=== PATIENT | female | born 1990 | race Caucasian/White ===

== ENCOUNTER 2016-08-05 05:26 | Inpatient (IN) | payer BC, OTHER ==
[2016-08-05 05:38] VITALS: RESP 16
[2016-08-05] MEDS ORDERED: METHYLERGONOVINE 0.2 MG/ML 1 ML AMP IM PRN (06:44)
[2016-08-05] MEDS ORDERED: CARBOPROST TROMETHAMINE 250 MCG/ML 1 ML AMP IM PRN (06:44)
[2016-08-05] MEDS ORDERED: TERBUTALINE 1 MG/ML VIAL SQ PRN (06:44)
[2016-08-05] MEDS ORDERED: LIDOCAINE 1% (PF) 10 MG/ML (30 ML SDV) SQ PRN (06:44)
[2016-08-05] MEDS ORDERED: OXYTOCIN 10 UNIT/ML 1 ML VIAL IM PRN (06:44)
[2016-08-05] MEDS ORDERED: LACTATED RINGERS 1,000 ML IV SCH (06:45)
[2016-08-05] MEDS ORDERED: OXYTOCIN 20 UNITS/1000 ML NS 1,000 ML IV SCH (06:45)
[2016-08-05 06:53] VITALS: BMI 23.8
[2016-08-05 07:07] LABS: Basophils # (A) 0.1 k/uL (0-0.2); Basophils % (A) 1 %; CH 32.7; CHCM 36.2; Eosinophils # (A) 0.1 k/uL (0-0.7); Eosinophils % (A) 1 %; HCT 37.8 % (34.0-46.0); HDW 2.92; Luc # (Auto) 0.11; Luc % (Auto) 1; Lymphocytes % (A) 22 %; MCH 31.3 pg (25.0-35.0); MCHC 34.5 g/dL (31.0-37.0); MCV 90.7 fL (80.0-100.0); Mean Platelet Volume 7.3; Monocytes # (A) 0.4 k/uL (0-1.0); Monocytes % (A) 5 %; Neutrophils # (A) 6.3 k/uL (1.3-7.7); Neutrophils % (A) 71 %; RBC 4.16 m/uL (3.80-5.40); RDW 13.2 % (11.5-15.5); WBC 8.9 k/uL (3.8-10.6); WBC (Perox) 9.18
--- NOTE | 2016-08-05 07:50 | P.HPOB ---
History of Present Illness H&P Date: 08/05/16 Chief Complaint: Labor at 40 and one sevenths weeks This is a 26-year-old 1 para 0 woman with an estimated due date of 08/04 who presents at 40 and one sevenths weeks gestation in spontaneous active labor. She had onset of painful regular uterine contractions at approximately 2 :30 AM. She presented to labor and delivery triage at which time she changed her cervix from 4-5 cm. She was therefore admitted in labor. She denies leakage of fluids or vaginal bleeding. Her has been entirely unremarkable. Laboratory data: Blood type A-, antibody screen negative, rubella immune, VDRL nonreactive, hepatitis B surface antigen negative, HIV negative, diabetes screening within normal limits, group B strep negative, she received Tarun appropriately at approximately 28 weeks gestation. Review of Systems All systems: negative Past Medical History Past Medical History: No Reported History History of Any Multi-Drug Resistant Organisms: None Reported Past Surgical History: No Surgical Hx Reported Past Anesthesia/Blood Transfusion Reactions: No Reported Reaction Past Psychological History: No Psychological Hx Reported Smoking Status: Never smoker Past Alcohol Use History: None Reported Past Drug Use History: None Reported - Past Family History Mother Family Medical History: No Reported History Medications and Allergies Home Medications Medication Instructions Recorded Confirmed Type No.77/Iron Asp Gly/FA 1 tab PO DAILY 08/05/16 08/05/16 History [Prenate Star Tablet] Allergies Allergy/AdvReac Type Severity Reaction Status Date / Time No Known Allergies Allergy Verified 08/05/16 05:31 Exam - Vital Signs Vital signs: Vital Signs Temp Pulse Resp BP 08/05/16 06:49 97.0 F L 77 16 134/82 08/05/16 06:32 96.9 F L 77 16 134/82 08/05/16 05:32 96.9 F L 87 16 127/84 Intake and Output 08/04/16 08/05/16 08/05/16 22:59 06:59 14:59 Other: Weight 68.946 kg Targeted physical exam is performed. This is a comfortable appearing female who is visibly gravid. On pelvic examination the cervix is 7 cm dilated , 100% effaced, vertex in the 0 station. Artificial rupture of membranes is undertaken and thin meconium-stained fluid is noted. She was camilo approximately every 3-5 minutes spontaneously. heart tones are reassuring by external monitoring. Results Result Diagrams: 08/05/16 06:50 Assessment and Plan (1) 40 weeks gestation of Status: Acute (2) Meconium in amniotic fluid Status: Acute (3) Spontaneous onset of labor Status: Acute (4) Rh negative, maternal Status: Acute Plan: 26-year-old 1 para 0 woman at 40 and one sevenths weeks gestation in spontaneous active labor. Light meconium-stained fluid noted. She is group B strep negative and Rh-. status is currently reassuring by external monitoring. Anticipate normal spontaneous vaginal delivery.
[2016-08-05] MEDS ORDERED: LANOLIN CREAM 5 GM TUBE TOPICAL PRN (11:21)
[2016-08-05] MEDS ORDERED: diphenhydrAMINE 50 MG CAP PO PRN (11:21)
[2016-08-05] MEDS ORDERED: ZOLPIDEM 5 MG TAB PO PRN (11:21)
[2016-08-05] MEDS ORDERED: HYDROCORTISONE 2.5% RECTAL CREAM 30 GM TUBE RECTAL PRN (11:21)
[2016-08-05] MEDS ORDERED: SIMETHICONE 80 MG CHEWABLE PO PRN (11:21)
[2016-08-05] MEDS ORDERED: ACETAMINOPHEN TAB 325 MG TAB PO PRN (11:21)
[2016-08-05] MEDS ORDERED: diphenhydrAMINE 25 MG CAP PO PRN (11:21)
[2016-08-05] MEDS ORDERED: Acetaminophen-Codeine 300-30mg TAB PO PRN ×2 (11:21)
[2016-08-05] MEDS ORDERED: WITCH HAZEL 1 EACH MED..PAD TOPICAL PRN (11:21)
[2016-08-05] MEDS ORDERED: diphenhydrAMINE 50 MG/ML 1 ML VIAL IVP PRN ×2 (11:21)
[2016-08-05] MEDS ORDERED: BENZOCAINE SPRAY 57GM TOPICAL PRN (11:21)
--- NOTE | 2016-08-05 11:25 | P.PROBDLV ---
Vaginal Delivery Note - . Vaginal Delivery Note: The patient is a 26-year-old 1 para 0 admitted at 40 and one sevenths weeks as established by good dating parameters. She is admitted with documented spontaneous rupture of membranes of light meconium-stained fluid and all signs reassuring. Her has been uncomplicated though she is Rh- and received RhoGAM at 28 weeks. On labor and delivery, she required no requested anything for analgesia and made good progress through the active phase of labor to complete. She then pushed for approximately 30 minutes to a normal spontaneous vaginal delivery of a viable 7 lbs. 0 oz. baby girl with Apgars of 9 at 1 minute and 9 at 5 minutes delivered in the direct occiput anterior position. The placenta was delivered spontaneously, intact, and grossly normal with a grossly normal, centrally inserted three-vessel cord. A second-degree midline episiotomy had been cut for the delivery and was noted to have a minimal extension that divided the anterior portion of the capsule of the external anal sphincter. This was closed with a single [id number] stitch of 2-0 Vicryl. Remainder of the episiotomy was closed in standard fashion using 3-0 chromic catgut without difficulty. Estimated blood loss for the case is approximately 200 mL. There were no complications. All sponge, instrument, and needle counts were correct. Both mother and are resting comfortably in recovery.
[2016-08-05] MEDS: IBUPROFEN 600 MG TAB PO PRN ×2 (11:55→18:56)
[2016-08-05] MEDS ORDERED: Rhogam IMMUNE GLOBULIN 1,500 UNIT/1 ML IM ONE (17:41)
[2016-08-05] MEDS ORDERED: SENNOSIDES-DOCUSATE SODIUM 1 EACH TAB PO SCH (20:00)
[2016-08-06 08:17] VITALS: BP 111/71; PULSE 76; TEMP 97.8
--- NOTE | 2016-08-06 09:02 | P.DS ---
Providers Date of admission: 08/05/16 06:36 Expected date of discharge: 08/06/16 Attending physician: Kahlil Ortiz Primary care physician: Stated None - Discharge Diagnosis(es) (1) Normal spontaneous vaginal delivery Current Visit: Yes Status: Acute Hospital Course: The patient is a 26-year-old 1 para 0 admitted at 40 and one sevenths weeks by good dating parameters. She is admitted in active labor with all signs reassuring. She is known to be Rh- and received RhoGAM at 28 weeks. On labor and delivery, she underwent artificial rupture of membranes of string lightly meconium-stained fluid. She made progress through the active phase of labor in a steady fashion to complete where after she pushed to a normal spontaneous vaginal delivery of a viable 7 lbs. 0 oz. baby girl with Apgars of 9 at 1 minute and 9 at 5 minutes. Her course was unremarkable vital signs remained stable and her temperature is afebrile throughout. She was deemed stable for discharge by day #1 was discharged home to follow- up in the office in 6 weeks' time routinely. Discharge instructions included calling for any significantly increased bleeding or foul-smelling lochia, significantly increased fever abdominal pain, perineal complaints, breast complaints, or anything else that concerned her. She is additionally instructed to have nothing in the vagina for at least 6 weeks time to include intercourse. She understood her instructions and agrees to follow up as noted above. Discharge medications included only qlio-efc-liocacw analgesic pain medications as well as continued vitamins as she has opted to breast- feed. Maternal blood type is A- and cord blood was sent for evaluation for the necessity of RhoGAM prior to discharge. Rubella status is immune. Procedures: #1. Artificial rupture of membranes #2. Normal spontaneous vaginal delivery # 3. Second-degree midline episiotomy and repair Patient Condition at Discharge: Good Plan - Discharge Summary New Discharge Prescriptions: No Action No.77/Iron Asp Gly/FA [Prenate Star Tablet] 1 tab PO DAILY Discharge Medication List No.77/Iron Asp Gly/FA [Prenate Star Tablet] 1 tab PO DAILY 08/05/16 [ History] Follow up Appointment(s)/Referral(s): Kahlil Ortiz MD [STAFF PHYSICIAN] - 6 Weeks Discharge Disposition: HOME SELF-CARE
== END 2016-08-06 16:00 | disposition home or self-care (01) | DRG 775 ==
LOC: FBPOP 05:26 → 4FBP 06:36
PROVIDERS: ADMIT Obstetrics & Gynecology; ATTEND Obstetrics & Gynecology
PROC: 10E0XZZ Delivery of Products of Conception, External Approach (ICD-10-PCS; principal; 2016-08-05)
PROC: 0W8NXZZ Division of Female Perineum, External Approach (ICD-10-PCS; 2016-08-05)
PROC: 3E0234Z Introduction of Serum, Toxoid and Vaccine into Muscle, Percutaneous Approach (ICD-10-PCS; 2016-08-05)
DX: O77.0 Labor and delivery complicated by meconium in amniotic fluid (principal); O26.893 Other specified pregnancy related conditions, third trimester; Z37.0 Single live birth; Z67.11 Type A blood, Rh negative; Z3A.40 40 weeks gestation of pregnancy
CPT/HCPCS: 59025; 85025; 85461; 88307; 99203

== ENCOUNTER 2017-10-15 11:34 | Emergency (ER) | payer BC, OTHER ==
[2017-10-15 11:44] VITALS: RESP 18; TEMP 98.3
[2017-10-15] MEDS ORDERED: SODIUM CHLORIDE 0.9% 1,000 ML IV STA (12:32)
--- NOTE | 2017-10-15 12:59 | XR ---
EXAMINATION TYPE: XR chest 2V DATE OF EXAM: 10/15/2017 COMPARISON: None INDICATION: Left arm numbness and tingling, chest pain TECHNIQUE: Frontal and lateral views of the chest are obtained. FINDINGS: The heart size is normal. The pulmonary vasculature is normal. The lungs are clear. IMPRESSION: 1. No acute pulmonary process.
--- NOTE | 2017-10-15 13:16 | CT ---
EXAMINATION TYPE: CT brain wo con DATE OF EXAM: 10/15/2017 COMPARISON: None HISTORY: Pain, headache CT DLP: 742.7 mGycm. Automated Exposure Control for Dose Reduction was Utilized. TECHNIQUE: CT scan of the head is performed without contrast. FINDINGS: There is no acute intracranial hemorrhage, mass effect, or midline shift identified. The ventricles and sulci are within normal limits in size. The globes are intact and the visualized sin uses are clear. IMPRESSION: No acute intracranial hemorrhage, mass effect, or midline shift is seen.
[2017-10-15 13:29] LABS: D-Dimer <0.17 mg/L FEU (<0.60); Partial Thromboplastin Time 24.3 sec (22.0-30.0); Prothrombin Time 10.1 sec (9.0-12.0)
[2017-10-15 13:31] LABS: ALT 27 U/L (9-52); AST 25 U/L (14-36); Albumin 5.2 g/dL (3.5-5.0); Alkaline Phosphatase 66 U/L (38-126); Anion Gap 9 mmol/L; Blood Urea Nitrogen 12 mg/dL (7-17); Calcium 9.5 mg/dL (8.4-10.2); Carbon Dioxide 28 mmol/L (22-30); Chloride 105 mmol/L (98-107); Glucose 77 mg/dL (74-99); Sodium 142 mmol/L (137-145); Total Bilirubin 0.5 mg/dL (0.2-1.3); Total Protein 7.9 g/dL (6.3-8.2)
[2017-10-15 13:43] LABS: Creatine Kinase 67 U/L (30-135)
[2017-10-15 13:55] LABS: Basophils # (A) 0.1 k/uL (0-0.2); Basophils % (A) 1 %; Eosinophils # (A) 0.1 k/uL (0-0.7); Eosinophils % (A) 1 %; HCT 43.9 % (34.0-46.0); HGB 14.8 gm/dL (11.4-16.0); Lymphocytes # (A) 1.9 k/uL (1.0-4.8); Lymphocytes % (A) 40 %; MCH 29.6 pg (25.0-35.0); MCHC 33.7 g/dL (31.0-37.0); MCV 87.7 fL (80.0-100.0); Mean Platelet Volume 6.8; Monocytes # (A) 0.3 k/uL (0-1.0); Monocytes % (A) 5 %; Neutrophils # (A) 2.4 k/uL (1.3-7.7); Neutrophils % (A) 51 %; Platelet Count 171 k/uL (150-450); RDW 12.6 % (11.5-15.5); WBC 4.7 k/uL (3.8-10.6)
[2017-10-15 13:56] LABS: Creatine Kinase MB 0.5 ng/mL (0.0-2.4); Troponin I <0.012 ng/mL (0.000-0.034)
--- NOTE | 2017-10-15 15:03 | ED ---
General Adult HPI - General Chief complaint: Headache Stated complaint: HEADACHE, NUMBNESS, TINGLING Time Seen by Provider: 10/15/17 12:20 Source: patient Mode of arrival: ambulatory Limitations: no limitations - History of Present Illness Initial comments: 27 years O female presents with the blurred vision yesterday he started around the wound she had a blood vision for about half an hour then it got better also had a left arm numbness that lasted for 1 hour yesterday and she experienced the left arm numbness again today and she felt her tongue was numb and has some chest pain with deep breaths she denies any tobacco use she denies any history of pulmonary embolism with herself or in the family she is on a control pills. System is unremarkable otherwise - Related Data Home Medications Medication Instructions Recorded Confirmed Control (Unknown) 1 tab PO HS 10/15/17 10/15/17 Multivitamins, Thera [Multivitamin 1 tab PO DAILY 10/15/17 10/15/17 (formulary)] Allergies Allergy/AdvReac Type Severity Reaction Status Date / Time No Known Allergies Allergy Verified 10/15/17 11:41 Review of Systems ROS Statement: Those systems with pertinent positive or pertinent negative responses have been documented in the HPI. ROS Other: All systems not noted in ROS Statement are negative. Past Medical History Past Medical History: No Reported History History of Any Multi-Drug Resistant Organisms: None Reported Past Surgical History: No Surgical Hx Reported Past Anesthesia/Blood Transfusion Reactions: No Reported Reaction Past Psychological History: No Psychological Hx Reported Smoking Status: Never smoker Past Alcohol Use History: None Reported Past Drug Use History: None Reported - Past Family History Mother Family Medical History: No Reported History General Exam - General Exam Comments Initial Comments: General: The patient is awake and alert, in no distress, and does not appear acutely ill. Skin: Skin is warm and dry and no rashes or lesions are noted. Eye: Pupils are equal, round and reactive to light, extra-ocular movements are intact; there is normal conjunctiva bilaterally. Ears, nose, mouth and throat: There are moist mucous membranes and no oral lesions. Neck: The neck is supple, there is no tenderness . Cardiovascular: There is a regular rate and rhythm. No murmur, rub or gallop is appreciated. Respiratory: To auscultation bilateral, no wheezing no rhonchi no distress respiratory pink noticed Gastrointestinal: Soft, non-distended, non-tender abdomen without masses or organomegaly noted. There is no rebound or guarding present. Bowel sounds are unremarkable. Back: There is no tenderness to palpation in the midline. There is no obvious deformity. Musculoskeletal: Normal ROM, no tenderness, There is no pedal edema. There is no calf tenderness or swelling. No cords were appreciated. Neurological: CN II-XII intact, Cranial nerves III through XII are intact. There are no obvious motor or sensory deficits. Coordination appears grossly intact. Speech is normal. Psychiatric: Cooperative, appropriate mood & affect, normal judgment. Limitations: no limitations Course Vital Signs 10/15/17 11:41 Temperature 98.3 F Pulse Rate 104 H Respiratory 18 Rate Blood Pressure 138/66 O2 Sat by Pulse 99 Oximetry Plan now reassessment d-dimer, CBC, CMP, troponin, EKG, head CT are unremarkable these findings are discussed with the patient she is also urged to get a family doctor or return to the ER if symptoms get worse EKG Findings - EKG Comments: EKG Findings:: Him EKG is a normal sinus ventricular rate is 77 MD interval is 146 QRS duration is 84 QT/QTc is 356/42 review of this EKG does not reveal any ST elevation or ST depression Medical Decision Making - Lab Data Result diagrams: 10/15/17 12:56 10/15/17 12:56 Lab Results 10/15/17 10/15/17 10/15/17 Range/Units 12:56 12:56 12:56 WBC 4.7 (3.8-10.6) k/uL RBC 5.00 (3.80-5.40) m/uL Hgb 14.8 (11.4-16.0) gm/dL Hct 43.9 (34.0-46.0) % MCV 87.7 (80.0-100.0) fL MCH 29.6 (25.0-35.0) pg MCHC 33.7 (31.0-37.0) g/dL RDW 12.6 (11.5-15.5) % Plt Count 171 (150-450) k/uL Neutrophils % 51 % Lymphocytes % 40 % Monocytes % 5 % Eosinophils % 1 % Basophils % 1 % Neutrophils # 2.4 (1.3-7.7) k/uL Lymphocytes # 1.9 (1.0-4.8) k/uL Monocytes # 0.3 (0-1.0) k/uL Eosinophils # 0.1 (0-0.7) k/uL Basophils # 0.1 (0-0.2) k/uL PT (9.0-12.0) sec INR (<1.2) APTT (22.0-30.0) sec D-Dimer (<0.60) mg/L FEU Sodium 142 (137-145) mmol/L Potassium 4.0 (3.5-5.1) mmol/L Chloride 105 (98-107) mmol/L Carbon Dioxide 28 (22-30) mmol/L Anion Gap 9 mmol/L BUN 12 (7-17) mg/dL Creatinine 0.64 (0.52-1.04) mg/dL Est GFR (CKD-EPI)AfAm >90 (>60 ml/min/1.73 sqM) Est GFR (CKD-EPI)NonAf >90 (>60 ml/min/1.73 sqM) Glucose 77 (74-99) mg/dL Calcium 9.5 (8.4-10.2) mg/dL Magnesium 2.0 (1.6-2.3) mg/dL Total Bilirubin 0.5 (0.2-1.3) mg/dL AST 25 (14-36) U/L ALT 27 (9-52) U/L Alkaline Phosphatase 66 (38-126) U/L Total Creatine Kinase 67 (30-135) U/L CK-MB (CK-2) 0.5 (0.0-2.4) ng/mL CK-MB (CK-2) Rel Index 0.7 Troponin I <0.012 (0.000-0.034) ng/mL Total Protein 7.9 (6.3-8.2) g/dL Albumin 5.2 H (3.5-5.0) g/dL 10/15/17 Range/Units 12:56 WBC (3.8-10.6) k/uL RBC (3.80-5.40) m/uL Hgb (11.4-16.0) gm/dL Hct (34.0-46.0) % MCV (80.0-100.0) fL MCH (25.0-35.0) pg MCHC (31.0-37.0) g/dL RDW (11.5-15.5) % Plt Count (150-450) k/uL Neutrophils % % Lymphocytes % % Monocytes % % Eosinophils % % Basophils % % Neutrophils # (1.3-7.7) k/uL Lymphocytes # (1.0-4.8) k/uL Monocytes # (0-1.0) k/uL Eosinophils # (0-0.7) k/uL Basophils # (0-0.2) k/uL PT 10.1 (9.0-12.0) sec INR 1.0 (<1.2) APTT 24.3 (22.0-30.0) sec D-Dimer <0.17 (<0.60) mg/L FEU Sodium (137-145) mmol/L Potassium (3.5-5.1) mmol/L Chloride (98-107) mmol/L Carbon Dioxide (22-30) mmol/L Anion Gap mmol/L BUN (7-17) mg/dL Creatinine (0.52-1.04) mg/dL Est GFR (CKD-EPI)AfAm (>60 ml/min/1.73 sqM) Est GFR (CKD-EPI)NonAf (>60 ml/min/1.73 sqM) Glucose (74-99) mg/dL Calcium (8.4-10.2) mg/dL Magnesium (1.6-2.3) mg/dL Total Bilirubin (0.2-1.3) mg/dL AST (14-36) U/L ALT (9-52) U/L Alkaline Phosphatase (38-126) U/L Total Creatine Kinase (30-135) U/L CK-MB (CK-2) (0.0-2.4) ng/mL CK-MB (CK-2) Rel Index Troponin I (0.000-0.034) ng/mL Total Protein (6.3-8.2) g/dL Albumin (3.5-5.0) g/dL Disposition Clinical Impression: Blurred vision, Left arm numbness, Numbness of tongue, Pleuritic chest pain Disposition: HOME SELF-CARE Condition: Good Instructions: Blurred Vision (ED) Additional Instructions: R progression of her like her to see account contact associate she was referred to Dr ernandez Is patient prescribed a controlled substance at d/c from ED?: No Referrals: None,Stated [Primary Care Provider] - 1-2 days Addison Ernandez MD [STAFF PHYSICIAN] - 1-2 days
[2017-10-15 15:29] VITALS: BP 111/53; PULSE 79
== END 2017-10-15 15:28 | disposition home or self-care (01) ==
LOC: EC 11:34
DX: R07.81 Pleurodynia (principal); H53.8 Other visual disturbances; R20.0 Anesthesia of skin; Z79.3 Long term (current) use of hormonal contraceptives
CPT/HCPCS: 36415; 70450; 71046; 80053; 82550; 82553; 83735; 84484; 85025; 85379; 85610; 85730; 93005; 99284

== ENCOUNTER 2020-01-13 01:13 | Inpatient (IN) | payer OTHER ==
[2020-01-13] MEDS ORDERED: OXYTOCIN 10 UNIT/ML 1 ML VIAL IM PRN (02:00)
[2020-01-13] MEDS ORDERED: OXYTOCIN 30 UNITS/500 ML NS 30 UNIT in SALINE 1 500ML.BAG IV SCH (02:00)
[2020-01-13] MEDS ORDERED: CARBOPROST TROMETHAMINE 250 MCG/ML 1 ML AMP IM PRN (02:00)
[2020-01-13] MEDS ORDERED: METHYLERGONOVINE 0.2 MG/ML 1 ML AMP IM PRN (02:00)
[2020-01-13] MEDS ORDERED: LIDOCAINE 0.5% (PF) 5 MG/ML (50 ML SDV) SQ PRN (02:00)
[2020-01-13] MEDS ORDERED: TERBUTALINE 1 MG/ML VIAL SQ PRN (02:00)
[2020-01-13] MEDS ORDERED: LACTATED RINGERS 1,000 ML IV SCH (02:00)
[2020-01-13 02:18] LABS: Basophils # (A) 0.1 k/uL (0-0.2); Basophils % (A) 1 %; Eosinophils # (A) 0.1 k/uL (0-0.7); Eosinophils % (A) 1 %; HCT 37.5 % (34.0-46.0); HGB 13.4 gm/dL (11.4-16.0); Hyperchromasia Slight; Lymphocytes # (A) 1.8 k/uL (1.0-4.8); Lymphocytes % (A) 19 %; MCH 31.4 pg (25.0-35.0); MCHC 35.6 g/dL (31.0-37.0); MCV 88.2 fL (80.0-100.0); Mean Platelet Volume 7.3; Monocytes # (A) 0.4 k/uL (0-1.0); Monocytes % (A) 4 %; Neutrophils % (A) 74 %; Platelet Count 172 k/uL (150-450); RBC 4.26 m/uL (3.80-5.40); RDW 12.4 % (11.5-15.5); WBC 9.5 k/uL (3.8-10.6)
[2020-01-13] MEDS ORDERED: LANOLIN CREAM 5 GM TUBE TOPICAL PRN (05:12)
[2020-01-13] MEDS ORDERED: SIMETHICONE 80 MG CHEWABLE PO PRN (05:12)
[2020-01-13] MEDS ORDERED: diphenhydrAMINE 50 MG CAP PO PRN (05:12)
[2020-01-13] MEDS ORDERED: diphenhydrAMINE 50 MG/ML 1 ML VIAL IVP PRN ×2 (05:12)
[2020-01-13] MEDS ORDERED: diphenhydrAMINE 25 MG CAP PO PRN (05:12)
[2020-01-13] MEDS ORDERED: ZOLPIDEM 5 MG TAB PO PRN (05:12)
[2020-01-13] MEDS ORDERED: ACETAMINOPHEN TAB 325 MG TAB PO PRN (05:12)
[2020-01-13] MEDS ORDERED: HYDROCORTISONE 2.5% RECTAL CREAM 30 GM TUBE RECTAL PRN (05:12)
[2020-01-13] MEDS ORDERED: BENZOCAINE/MENTHOL SPRAY 1 GM/SPRAY AEROSOL TOPICAL PRN (05:12)
[2020-01-13] MEDS ORDERED: OXYTOCIN 20 UNITS/1000 ML NS 1,000 ML IV SCH (05:15)
--- NOTE | 2020-01-13 05:19 | P.HPOB ---
History of Present Illness H&P Date: 01/13/20 Chief Complaint: IUP at 40 and 4/sevenths weeks, labor This is a 29-year-old at 40-4/7 weeks with an estimated due date of 01/08. Patient has been receiving routine care that has been essentially uncomplicated. Patient presented to labor and delivery with complaints of regular contractions that started around 11:00. Patient states she had rupture of membranes around 1210. She noted the fluid to be clear in nature. On bloodwork patient is a blood type of A-, rubella immune, hep [place] surface antigen negative, HIV negative, RPR negative, GBS negative. Review of Systems Constitutional: Denies chills, Denies fatigue, Denies fever Ears, nose, mouth and throat: Denies headache Cardiovascular: Reports leg edema Respiratory: Denies dyspnea Gastrointestinal: Denies constipation, Denies diarrhea, Denies nausea, Denies vomiting Genitourinary: Reports Past Medical History Past Medical History: No Reported History History of Any Multi-Drug Resistant Organisms: None Reported Past Surgical History: No Surgical Hx Reported Past Anesthesia/Blood Transfusion Reactions: No Reported Reaction Smoking Status: Never smoker - Past Family History Mother Family Medical History: No Reported History Medications and Allergies Home Medications Medication Instructions Recorded Confirmed Type Multivitamins, Thera [Multivitamin 1 tab PO DAILY 10/15/17 01/13/20 History (formulary)] Allergies Allergy/AdvReac Type Severity Reaction Status Date / Time No Known Allergies Allergy Verified 01/13/20 01:24 Exam Osteopathic Statement: *. No significant issues noted on an osteopathic structural exam other than those noted in the History and Physical/Consult. Vital Signs Temp Pulse Resp BP Pulse Ox 01/13/20 01:57 98.4 F 88 16 131/72 96 01/13/20 01:55 97.6 F 82 16 116/72 Intake and Output 01/12/20 01/12/20 01/13/20 14:59 22:59 06:59 Other: Weight 69.4 kg Targeted physical exam was performed and state in general this a well-nourished well-developed female in discomfort with contractions, breathing is noted to nonlabored, heart has regular rate and rhythm, abdomen is gravid and appropriate for gestational age, on cervical exam she is completely dilated and 0 station for bag is noted and rupture of membranes is performed with clear fluid. heart tones are be category 1 and she was camilo every 3 minutes. Results Result Diagrams: 01/13/20 02:10 Assessment and Plan (1) Post-dates Current Visit: Yes Status: Acute Code(s): O48.0 - POST-TERM SNOMED Code(s): 15335732 (2) Rh negative, maternal Current Visit: No Status: Acute Code(s): O09.899 - SUPERVISION OF OTHER HIGH RISK PREGNANCIES, UNSP TRIMESTER SNOMED Code(s): 198453684 (3) Spontaneous onset of labor Current Visit: No Status: Acute Code(s): BXM2880 - SNOMED Code(s): 38484183 Plan: Patient is admitted to labor and delivery for anticipated spontaneous vaginal delivery
--- NOTE | 2020-01-13 05:23 | P.PROBDLV ---
Vaginal Delivery Note - . Vaginal Delivery Note: This is a 29-year-old at 40-4/7 that presents to labor and delivery with complaints of regular contractions that began around 2300, followed by spontaneous rupture of membranes at 1210. Patient presented to the hospital was noted to be 5 cm. Patient progressed through labor eventually becoming complete began pushing and had a normal spontaneous vaginal delivery of a viable female at 451, weight of 6 lbs. 11 oz. and Apgars of 9 and 9 at one and 5 minut es respectively. After two-minute delayed the umbilical cord was doubly clamped and cut and the placenta was delivered spontaneously intact with a three-vessel cord being noted. Uterus was noted to be firm and below the umbilicus. On inspection the patient's vaginal vault bilateral labial lacerations were noted. These were repaired in the usual fashion with 4-0 chromic in a running locked fashion. Hemostasis was appreciated after closure. All counts were noted to be correct 2 with a result of A shunt tolerated delivery well and are resting comfortably Estimated blood loss 400 mL
[2020-01-13] MEDS: IBUPROFEN 600 MG TAB PO PRN ×2 (05:29→18:54)
[2020-01-13] MEDS: SENNOSIDES-DOCUSATE SODIUM 1 EACH TAB PO SCH ×2 (08:24→18:56)
[2020-01-14 08:04] VITALS: BP 106/61; PULSE 73; RESP 18; TEMP 97.6
[2020-01-14] MEDS: SENNOSIDES-DOCUSATE SODIUM 1 EACH TAB PO SCH (08:11)
[2020-01-14 08:22] LABS: Basophils # (A) 0.1 k/uL (0-0.2); Basophils % (A) 1 %; Eosinophils # (A) 0.1 k/uL (0-0.7); Eosinophils % (A) 1 %; HCT 29.4 % (34.0-46.0); HGB 10.5 gm/dL (11.4-16.0); Lymphocytes # (A) 2.3 k/uL (1.0-4.8); Lymphocytes % (A) 27 %; MCHC 35.5 g/dL (31.0-37.0); MCV 90.1 fL (80.0-100.0); Mean Platelet Volume 7.5; Monocytes # (A) 0.4 k/uL (0-1.0); Monocytes % (A) 4 %; Neutrophils # (A) 5.7 k/uL (1.3-7.7); Neutrophils % (A) 67 %; Platelet Count 147 k/uL (150-450); RBC 3.27 m/uL (3.80-5.40); RDW 12.7 % (11.5-15.5); WBC 8.5 k/uL (3.8-10.6)
--- NOTE | 2020-01-14 11:07 | P.DS ---
Providers Date of admission: 01/13/20 01:48 Expected date of discharge: 01/14/20 Attending physician: Kahlil Ortiz Primary care physician: Stated None - Discharge Diagnosis(es) (1) Post-dates Current Visit: Yes Status: Acute (2) Normal spontaneous vaginal delivery Current Visit: No Status: Acute (3) Rh negative, maternal Current Visit: No Status: Acute (4) Spontaneous onset of labor Current Visit: No Status: Acute Hospital Course: This is a 29-year-old 2 now para 2 woman who is admitted at 40-4/7 weeks' gestation with spontaneous onset of labor and rupture of membranes. She was 5 cm dilated when she presented to the hospital. She had an unremarkable progression through the first stage of labor. She went on to deliver a liveborn female weighing 6 lbs. 11 oz. with Apgars of 9 at 1 minute and 9 at 5 minutes. She had bilateral labial lacerations were repaired. Her course was unremarkable. By day #1 she was ambulating and voiding without difficulty, her lochia was decreasing and her vital signs were stable. Her labial lacerations were well healing. She was therefore discharged home with routine instructions for care and follow-up. Patient Condition at Discharge: Good Plan - Discharge Summary New Discharge Prescriptions: No Action Multivitamins, Thera [Multivitamin (formulary)] 1 tab PO DAILY Discharge Medication List Multivitamins, Thera [Multivitamin (formulary)] 1 tab PO DAILY 10/15/17 [History] Follow up Appointment(s)/Referral(s): Kahlil Ortiz MD [STAFF PHYSICIAN] - 6 Weeks Activity/Diet/Wound Care/Special Instructions: Follow-up in the office in 6 weeks . Call with any concerning signs or symptoms including heavy vaginal bleeding, severe abdominal pain, fever greater than 101, swelling or redness of the lower extremities, foul vaginal discharge, or signs of depression. Nothing in the vagina for 6 weeks after delivery, specifically no intercourse. Discharge Disposition: HOME SELF-CARE
== END 2020-01-14 11:35 | disposition home or self-care (01) | DRG 807 ==
LOC: FBPOP 01:13 → 4FBP 01:48
PROVIDERS: ADMIT Obstetrics & Gynecology Obstetrics; ATTEND Obstetrics & Gynecology
PROC: 10E0XZZ Delivery of Products of Conception, External Approach (ICD-10-PCS; principal; 2020-01-13)
PROC: 0HQ9XZZ Repair Perineum Skin, External Approach (ICD-10-PCS; 2020-01-13)
DX: O48.0 Post-term pregnancy (principal); Z37.0 Single live birth; O70.0 First degree perineal laceration during delivery; Z3A.40 40 weeks gestation of pregnancy; Z79.899 Other long term (current) drug therapy
CPT/HCPCS: 59025; 84112; 85025; 86850; 86870; 86880; 86900; 86901; 99213

== ENCOUNTER 2021-04-24 21:58 | Inpatient (IN) | payer OTHER ==
[2021-04-24] MEDS ORDERED: TERBUTALINE 1 MG/ML VIAL SQ PRN (22:32)
[2021-04-24] MEDS ORDERED: OXYTOCIN 10 UNIT/ML 1 ML VIAL IM PRN (22:32)
[2021-04-24] MEDS ORDERED: CARBOPROST TROMETHAMINE 250 MCG/ML 1 ML AMP IM PRN (22:32)
[2021-04-24] MEDS ORDERED: LIDOCAINE 1% (PF) 10 MG/ML (30 ML SDV) SQ PRN (22:32)
[2021-04-24] MEDS ORDERED: METHYLERGONOVINE 0.2 MG/ML 1 ML AMP IM PRN (22:32)
[2021-04-24] MEDS ORDERED: LACTATED RINGERS 1,000 ML IV SCH (22:45)
[2021-04-24] MEDS ORDERED: OXYTOCIN 30 UNITS/500 ML NS 30 UNIT in SALINE 1 500ML.BAG IV SCH (22:45)
[2021-04-24 22:51] LABS: Basophils % (A) 0 %; Eosinophils # (A) 0.1 k/uL (0-0.7); Eosinophils % (A) 1 %; HCT 38.6 % (34.0-46.0); HGB 13.8 gm/dL (11.4-16.0); Lymphocytes # (A) 2.1 k/uL (1.0-4.8); Lymphocytes % (A) 26 %; MCH 32.3 pg (25.0-35.0); MCHC 35.6 g/dL (31.0-37.0); MCV 90.5 fL (80.0-100.0); Mean Platelet Volume 8.8; Monocytes # (A) 0.4 k/uL (0-1.0); Monocytes % (A) 5 %; Neutrophils # (A) 5.5 k/uL (1.3-7.7); Neutrophils % (A) 67 %; Platelet Count 180 k/uL (150-450); RBC 4.27 m/uL (3.80-5.40); RDW 12.6 % (11.5-15.5); WBC 8.2 k/uL (3.8-10.6)
[2021-04-25] MEDS ORDERED: HYDROcodone/APAP 7.5-325MG 1 EACH TAB PO PRN (00:06)
[2021-04-25] MEDS ORDERED: HYDROcodone/APAP 5-325MG 1 EACH TAB PO PRN (00:06)
[2021-04-25] MEDS ORDERED: diphenhydrAMINE 25 MG CAP PO PRN (00:06)
[2021-04-25] MEDS ORDERED: diphenhydrAMINE 50 MG/ML 1 ML VIAL IVP PRN ×2 (00:06)
[2021-04-25] MEDS ORDERED: BENZOCAINE/MENTHOL SPRAY 1 GM/SPRAY AEROSOL TOPICAL PRN (00:06)
[2021-04-25] MEDS ORDERED: diphenhydrAMINE 50 MG CAP PO PRN (00:06)
[2021-04-25] MEDS ORDERED: ACETAMINOPHEN TAB 325 MG TAB PO PRN (00:06)
[2021-04-25] MEDS ORDERED: ZOLPIDEM 5 MG TAB PO PRN (00:06)
[2021-04-25] MEDS ORDERED: SIMETHICONE 80 MG CHEWABLE PO PRN (00:06)
[2021-04-25] MEDS ORDERED: LANOLIN CREAM 5 GM TUBE TOPICAL PRN (00:06)
[2021-04-25] MEDS ORDERED: HYDROCORTISONE 2.5% RECTAL CREAM 30 GM TUBE RECTAL PRN (00:06)
--- NOTE | 2021-04-25 00:13 | P.HPOB ---
History of Present Illness H&P Date: 04/25/21 Chief Complaint: 37-4/7 weeks, active labor, spontaneous rupture of membranes The patient is a 30-year-old 3 para 2001 admitted at 37-4/7 weeks as determined by a 6 week ultrasound. She is admitted with documented spontaneous rupture of membranes in early active labor with all signs reassuring. Category 1 heart rate tracing is present. Her has been entirely uncomplicated. She is Rh- and received RhoGAM at 28 weeks. Group B strep status is negative. Obstetrical history: 3 para 2001 with 2 previous normal spontaneous vaginal deliveries at term. Her has been entirely uncomplicated as noted above. EDC of 05/11/2021 was established by a 6 week ultrasound. Laboratory workup demonstrates a blood type of A- with a negative antibody screen. Rubella status is immune. Remainder of the laboratory workup was within normal limits. One hour Glucola was normal and group B strep status is negative. Gynecologic history: Unremarkable with no history of any infections to include STDs. Review of Systems Review of systems is confined to history of present illness. Past Medical History Past Medical History: No Reported History History of Any Multi-Drug Resistant Organisms: None Reported Past Surgical History: No Surgical Hx Reported Past Anesthesia/Blood Transfusion Reactions: No Reported Reaction Past Psychological History: No Psychological Hx Reported Smoking Status: Never smoker Past Alcohol Use History: None Reported Past Drug Use History: None Reported - Past Family History Mother Family Medical History: No Reported History Father Family Medical History: Hypertension Medications and Allergies Home Medications Medication Instructions Recorded Confirmed Type Multivitamins, Thera [Multivitamin 1 tab PO DAILY 10/15/17 04/24/21 History (formulary)] Allergies Allergy/AdvReac Type Severity Reaction Status Date / Time No Known Allergies Allergy Verified 01/13/20 01:24 Exam Vital Signs Temp Pulse Resp BP Pulse Ox 04/24/21 22:30 97.4 F L 88 16 137/84 96 Intake and Output 04/24/21 04/24/21 04/25/21 14:59 22:59 06:59 Other: Weight 75.75 kg General, this is a well-developed, well-nourished white female in no acute distress aside from being in active labor. Her heart has a regular rhythm and rate without murmur. Her lungs are clear to auscultation bilaterally in all bills. Her abdomen is gravid, nondistended, has normal active bowel sounds, is soft, nontender, without any palpable masses aside from uterine fundus. Her extremities are without any cyanosis, clubbing, or edema and are nontender to palpation bilaterally. Digital cervical examination demonstrates her cervix on admission to be 5 cm, 80% effaced, with the vertex in presentation at -2 station on admission. Spontaneous rupture of membranes is documented. Results Result Diagrams: 04/24/21 22:40 Assessment and Plan (1) Active labor at term Current Visit: Yes Status: Acute Code(s): [id number] - SNOMED Code(s): 38065411 Plan: The patient is admitted for active management of labor. She has declined epidu ral and IV analgesia and she will have close maternal and surveillance and expectant management will be practiced. Normal vaginal deliveries anticipated shortly.
[2021-04-25] MEDS ORDERED: OXYTOCIN 30 UNITS/500 ML NS 30 UNIT in SALINE 1 500ML.BAG IV SCH (00:15)
--- NOTE | 2021-04-25 00:15 | P.PROBDLV ---
Vaginal Delivery Note - . Vaginal Delivery Note: The patient is a 30-year-old 3 para 2 scissors or 2 admitted at 37-4/7 weeks by good dating parameters. She is admitted with documented spontaneous rupture of membranes in early active labor with all signs reassuring. Her has been uncomplicated though she is Rh- and received RhoGAM at 28 weeks. Group B strep status is negative. On labor and delivery, all signs reassuring with a category 1 heart rate tracing. She has declined epidural analgesia. She made rapid progress through the active phase of labor to complete and then pushed over the course of 1 contraction to a normal spontaneous vaginal delivery of a viable 7 lbs. 12 oz. baby boy with Apgars of 9 at 1 minute and 9 at 5 minutes delivered in the right occiput anterior position. The placenta was delivered spontaneously, intact, and grossly normal with a grossly normal, centrally inserted three-vessel cord. There were no lacerations of the perineum, vagina, or cervix. Estimated blood loss was approximately 150 mL. There were no complications. All sponge, instrument, and needle counts were correct. Both mother and are resting comfortably in recovery.
[2021-04-25] MEDS: IBUPROFEN 600 MG TAB PO PRN ×3 (02:37→19:46)
[2021-04-25 04:08] VITALS: RESP 16
--- NOTE | 2021-04-25 08:48 | P.PNOBGVD ---
Subjective - Subjective Patient reports: Reports appetite normal, Reports voiding normally, Reports pain well controlled, Reports ambulating normally : doing well, nursing well Objective - Latest Vital Signs Latest vital signs: Vital Signs Temp Pulse Resp BP Pulse Ox 04/25/21 03:45 98.9 F 88 16 116/72 97 04/25/21 02:00 98.4 F 72 18 141/80 98 04/25/21 01:30 78 16 127/82 04/25/21 01:00 76 18 147/76 04/25/21 00:45 76 16 137/80 04/25/21 00:30 91 16 123/85 04/25/21 00:15 80 18 134/80 04/25/21 00:00 97.7 F 87 16 125/81 97 04/24/21 22:30 97.4 F L 88 16 137/84 96 04/24/21 22:03 97.4 F L 88 16 137/84 96 Intake and Output 04/24/21 04/25/21 04/25/21 22:59 06:59 14:59 Intake Total 167 Output Total 334 Balance -167 Intake: Intake, IV Titration 167 Amount Oxytocin 30 Units/500 ml 167 Ns 30 unit In Saline 1 500ml.bag @ Per Protocol IV .Q0M [facility] Rx#:[id number] Output: Estimated Blood Loss 150 Output, Quantitative 184 Blood Loss Other: # Voids 1 Weight 75.75 kg - Exam Extremities: Present: normal Abdomen: Present: normal appearance, soft Uterus: Present: normal, firm (Uterine fundus is town a candidate nontender below the umbilicus.) Assessment and Plan (1) Active labor at term Current Visit: Yes Status: Acute Code(s): HRI0862 - SNOMED Code(s): 33034606 (2) Normal spontaneous vaginal delivery Current Visit: Yes Status: Acute Code(s): O80 - ENCOUNTER FOR FULL-TERM UNCOMPLICATED DELIVERY SNOMED Code(s): 10670009 Plan: Continue routine care. I would anticipate discharge home tomorrow pending no complications.
[2021-04-25] MEDS: SENNOSIDES-DOCUSATE SODIUM 1 EACH TAB PO SCH ×2 (09:20→19:46)
[2021-04-26 05:55] LABS: Basophils % (A) 0 %; Eosinophils # (A) 0.1 k/uL (0-0.7); Eosinophils % (A) 2 %; HCT 34.2 % (34.0-46.0); HGB 11.9 gm/dL (11.4-16.0); Lymphocytes # (A) 2.5 k/uL (1.0-4.8); Lymphocytes % (A) 33 %; MCH 31.8 pg (25.0-35.0); MCHC 34.9 g/dL (31.0-37.0); MCV 91.2 fL (80.0-100.0); Mean Platelet Volume 8.4; Monocytes # (A) 0.3 k/uL (0-1.0); Monocytes % (A) 4 %; Neutrophils # (A) 4.5 k/uL (1.3-7.7); Neutrophils % (A) 60 %; Platelet Count 151 k/uL (150-450); RBC 3.75 m/uL (3.80-5.40); RDW 12.7 % (11.5-15.5); WBC 7.5 k/uL (3.8-10.6)
[2021-04-26 08:03] VITALS: BP 117/68; PULSE 89; TEMP 97.8
[2021-04-26] MEDS: SENNOSIDES-DOCUSATE SODIUM 1 EACH TAB PO SCH (09:13)
--- NOTE | 2021-04-26 10:33 | P.DS ---
Providers Date of admission: 04/24/21 22:12 Expected date of discharge: 04/26/21 Attending physician: Kahlil Ortiz Primary care physician: Stated None - Discharge Diagnosis(es) (1) Active labor at term Current Visit: Yes Status: Acute (2) Normal spontaneous vaginal delivery Current Visit: Yes Status: Acute Hospital Course: The patient is a 30-year-old 3 para 2001 admitted at 37-4/7 weeks by good dating parameters perches admitted with documented spontaneous rupture of membranes in early active labor with all signs reassuring. Her was entirely uncomplicated though she is Rh- and received RhoGAM at 28 weeks. Group B strep status is negative. On labor and delivery, she made fairly rapid progress to complete and then pushed to a normal spontaneous vaginal delivery of a viable 7 lbs. 12 oz. baby boy with Apgars of 9 at 1 minute and 9 at 5 minutes. Her care was unremarkable with vital signs remained stable and her temperature was afebrile throughout. She was deemed stable for discharge on day #2 and was discharged home to follow-up in the office in 6 weeks' time routinely. Discharge instructions included calling for any significantly increased bleeding or foul-smelling lochia, significantly increased fever abdominal pain, perineal complaints, breast complaints, or anything else that concerned her. She was additionally instructed to have nothing in the vagina for at least 6 weeks time to include intercourse. She understood her instructions and agrees to follow up as noted above. Discharge medications included continued vitamins as she has opted to breast-feed. She otherwise was to use [id number] analgesic pain medications as needed. Maternal blood type is A- and cord blood was sent for evaluation for the necessity of RhoGAM prior to discharge. Rubella status is immune. Procedures: #1. Normal spontaneous vaginal delivery Patient Condition at Discharge: Stable Plan - Discharge Summary New Discharge Prescriptions: No Action Multivitamins, Thera [Multivitamin (formulary)] 1 tab PO DAILY Discharge Medication List Multivitamins, Thera [Multivitamin (formulary)] 1 tab PO DAILY 10/15/17 [History] Follow up Appointment(s)/Referral(s): Kahlil Ortiz MD [STAFF PHYSICIAN] - 6 Weeks Discharge Disposition: HOME SELF-CARE
== END 2021-04-26 12:42 | disposition home or self-care (01) | DRG 807 ==
LOC: FBPOP 21:58 → 4FBP 22:12
PROVIDERS: ADMIT Obstetrics & Gynecology; ATTEND Obstetrics & Gynecology
PROC: 10E0XZZ Delivery of Products of Conception, External Approach (ICD-10-PCS; principal; 2021-04-25)
DX: O26.893 Other specified pregnancy related conditions, third trimester (principal); Z37.0 Single live birth; Z67.11 Type A blood, Rh negative; Z79.899 Other long term (current) drug therapy; Z3A.37 37 weeks gestation of pregnancy; Z82.49 Family history of ischemic heart disease and other diseases of the circulatory system
CPT/HCPCS: 59025; 84112; 85025; 86850; 86870; 86880; 86900; 86901; 99213

== ENCOUNTER 2021-09-19 08:00 | Emergency (ER) | payer OTHER ==
[2021-09-19] MEDS ORDERED: MORPHINE SULFATE 4 MG/ML SYRINGE IV STA (08:24)
[2021-09-19] MEDS ORDERED: SODIUM CHLORIDE 0.9% 1,000 ML IV STA (08:25)
[2021-09-19] MEDS ORDERED: ONDANSETRON 4 MG/2 ML VIAL IVP STA (08:27)
--- NOTE | 2021-09-19 08:27 | ED ---
General Adult HPI - General Chief complaint: Abdominal Pain Stated complaint: R side pain, left leg numbness Time Seen by Provider: 09/19/21 08:01 Source: patient Mode of arrival: ambulatory Limitations: no limitations - History of Present Illness Initial comments: Dictation was produced using [employer] dictation software. please excuse any grammatical, word or spelling errors. Chief Complaint: 31-year-old female presents emergency department for right- sided abdominal pain History of Present Illness: 31-year-old female she presents emergency department for severe right-sided abdominal pain. Patient denies any medical history. No history of abdominal surgery. Patient denies . She is 5 months . Patient has no history of abdominal disease. Patient states that her pain is severe right-sided. Nonradiating. She states that it feels like it's in her flank. Denies any vaginal discharge vaginal bleeding. Denies any fever or constitutional symptoms. She woke up with the symptoms. States that the pain is severe and rated a 10 out of 10 and the pain severity scale. Today she had some bouts of nonbilious nonbloody emesis. The ROS documented in this emergency department record has been reviewed and confirmed by me. Those systems with pertinent positive or negative responses have been documented in the HPI. All other systems are other negative and/or noncontributory. PHYSICAL EXAM: General Impression: Alert and oriented x3, not in acute distress HEENT: Normocephalic atraumatic, extra-ocular movements intact, pupils equal and reactive to light bilaterally, mucous membranes moist. Cardiovascular: Heart regular rate and rhythm Chest: Able to complete full sentences, no retractions, no tachypnea Abdomen: abdomen soft, tenderness to palpation in the right lower quadrant, more superior than McBurney's point, she states that the pain is similar with palpation and release, non-distended, no organomegaly Musculoskeletal: Pulses present and equal in all extremities, no peripheral edema Motor: no focal deficits noted Neurological: CN II-XII grossly intact, no focal motor or sensory deficits noted Skin: Intact with no visualized rashes Psych: Normal affect and mood ED course: 31-year-old male presents emergency department for severe right lower quadrant abdominal pain. Vital signs upon arrival are within acceptable limits. Laboratory evaluation obtained. CBC is unremarkable. Metabolic panel is within acceptable limits. No signs of leukocytosis or kidney injury. Urinalysis shows 21 white blood cells without any red blood cells. 1+ ketones. Computed tomography scan abdomen and pelvis shows findings of nephrolithiasis with severe right-sided hydronephrosis. There is a 3-4 mm right UVJ calculus. There is also a 4 mm right renal calculus. I did receive a call from radiologist about intrahepatic biliary ductal dilatation no diagnostic evidence of gallstone. Patient was notified of the results and told to follow-up with primary care doctor. She is also given referral to GI doctor. Patient evaluated bedside limited 15 a.m. onto be in stable medical condition. Patient reports significant improvement of pain. Clinically patient likely passed the stone. Patient was discharged. - Related Data Home Medications Medication Instructions Recorded Confirmed Multivitamins, Thera [Multivitamin 1 tab PO DAILY 10/15/17 09/19/21 (formulary)] Previous Rx's Medication Instructions Recorded HYDROcodone/APAP 5-325MG [[place] 1 tab PO Q6HR PRN 3 Days #12 tab 09/19/21 5-325] Allergies Allergy/AdvReac Type Severity Reaction Status Date / Time No Known Allergies Allergy Verified 09/19/21 09:52 Review of Systems ROS Statement: Those systems with pertinent positive or pertinent negative responses have been documented in the HPI. ROS Other: All systems not noted in ROS Statement are negative. Past Medical History Past Medical History: No Reported History History of Any Multi-Drug Resistant Organisms: None Reported Past Surgical History: No Surgical Hx Reported Past Anesthesia/Blood Transfusion Reactions: No Reported Reaction Past Psychological History: No Psychological Hx Reported Smoking Status: Never smoker Past Alcohol Use History: Occasional Past Drug Use History: None Reported - Past Family History Mother Family Medical History: No Reported History Father Family Medical History: Hypertension General Exam Limitations: no limitations Course Vital Signs 09/19/21 08:02 Temperature 97.9 F Pulse Rate 67 Respiratory 16 Rate Blood Pressure 116/75 O2 Sat by Pulse 100 Oximetry Medical Decision Making - Lab Data Result diagrams: 09/19/21 08:17 09/19/21 08:17 Lab Results 09/19/21 09/19/21 09/19/21 Range/Units 08:17 08:17 08:17 WBC 4.8 (3.8-10.6) k/uL RBC 4.71 (3.80-5.40) m/uL Hgb 13.9 (11.4-16.0) gm/dL Hct 41.1 (34.0-46.0) % MCV 87.2 (80.0-100.0) fL MCH 29.5 (25.0-35.0) pg MCHC 33.8 (31.0-37.0) g/dL RDW 12.4 (11.5-15.5) % Plt Count 150 (150-450) k/uL MPV 8.0 Neutrophils % 60 % Lymphocytes % 33 % Monocytes % 4 % Eosinophils % 2 % Basophils % 1 % Neutrophils # 2.9 (1.3-7.7) k/uL Lymphocytes # 1.6 (1.0-4.8) k/uL Monocytes # 0.2 (0-1.0) k/uL Eosinophils # 0.1 (0-0.7) k/uL Basophils # 0.0 (0-0.2) k/uL Sodium (137-145) mmol/L Potassium (3.5-5.1) mmol/L Chloride (98-107) mmol/L Carbon Dioxide (22-30) mmol/L Anion Gap mmol/L BUN (7-17) mg/dL Creatinine (0.52-1.04) mg/dL Est GFR (CKD-EPI)AfAm (>60 ml/min/1.73 sqM) Est GFR (CKD-EPI)NonAf (>60 ml/min/1.73 sqM) Glucose (74-99) mg/dL Calcium (8.4-10.2) mg/dL Total Bilirubin (0.2-1.3) mg/dL AST (14-36) U/L ALT (4-34) U/L Alkaline Phosphatase (38-126) U/L Total Protein (6.3-8.2) g/dL Albumin (3.5-5.0) g/dL Lipase (23-300) U/L Urine Color Yellow Urine Appearance Cloudy H (Clear) Urine pH 5.0 (5.0-8.0) Ur Specific [place] 1.026 (1.001-1.035) Urine Protein Trace H (Negative) Urine Glucose (UA) Negative (Negative) Urine Ketones 1+ H (Negative) Urine Blood Negative (Negative) Urine Nitrite Negative (Negative) Urine Bilirubin Negative (Negative) Urine Urobilinogen <2.0 (<2.0) mg/dL Ur Leukocyte Esterase Moderate H (Negative) Urine RBC 2 (0-5) /hpf Urine WBC 21 H (0-5) /hpf Ur Squamous Epith Cells 9 H (0-4) /hpf Hyaline Casts 1 (0-2) /lpf Urine Mucus Few H (None) /hpf Urine HCG, Qual Not Detected (Not Detectd) 09/19/21 Range/Units 08:17 WBC (3.8-10.6) k/uL RBC (3.80-5.40) m/uL Hgb (11.4-16.0) gm/dL Hct (34.0-46.0) % MCV (80.0-100.0) fL MCH (25.0-35.0) pg MCHC (31.0-37.0) g/dL RDW (11.5-15.5) % Plt Count (150-450) k/uL MPV Neutrophils % % Lymphocytes % % Monocytes % % Eosinophils % % Basophils % % Neutrophils # (1.3-7.7) k/uL Lymphocytes # (1.0-4.8) k/uL Monocytes # (0-1.0) k/uL Eosinophils # (0-0.7) k/uL Basophils # (0-0.2) k/uL Sodium 140 (137-145) mmol/L Potassium 3.8 (3.5-5.1) mmol/L Chloride 106 (98-107) mmol/L Carbon Dioxide 22 (22-30) mmol/L Anion Gap 12 mmol/L BUN 14 (7-17) mg/dL Creatinine 0.76 (0.52-1.04) mg/dL Est GFR (CKD-EPI)AfAm >90 (>60 ml/min/1.73 sqM) Est GFR (CKD-EPI)NonAf >90 (>60 ml/min/1.73 sqM) Glucose 112 H (74-99) mg/dL Calcium 9.2 (8.4-10.2) mg/dL Total Bilirubin 0.7 (0.2-1.3) mg/dL AST 22 (14-36) U/L ALT 13 (4-34) U/L Alkaline Phosphatase 68 (38-126) U/L Total Protein 7.3 (6.3-8.2) g/dL Albumin 4.7 (3.5-5.0) g/dL Lipase 71 (23-300) U/L Urine Color Urine Appearance (Clear) Urine pH (5.0-8.0) Ur Specific [place] (1.001-1.035) Urine Protein (Negative) Urine Glucose (UA) (Negative) Urine Ketones (Negative) Urine Blood (Negative) Urine Nitrite (Negative) Urine Bilirubin (Negative) Urine Urobilinogen (<2.0) mg/dL Ur Leukocyte Esterase (Negative) Urine RBC (0-5) /hpf Urine WBC (0-5) /hpf Ur Squamous Epith Cells (0-4) /hpf Hyaline Casts (0-2) /lpf Urine Mucus (None) /hpf Urine HCG, Qual (Not Detectd) Disposition Clinical Impression: Kidney stone Disposition: HOME SELF-CARE Condition: Good Instructions (If sedation given, give patient instructions): Kidney Stones (ED) Additional Instructions: 1. Today you were treated and evaluated for kidney stone. 2. There was incidental finding of biliary ductal dilatation. It is important he follow-up with primary care doctor or specialist for further evaluation. Please seek medical attention if you have any right upper quadrant pain or yellowing of the skin. Prescriptions: HYDROcodone/APAP 5-325MG [[place] 5-325] 1 tab PO Q6HR PRN 3 Days #12 tab PRN Reason: Pain Is patient prescribed a controlled substance at d/c from ED?: Yes If prescribed controlled substance>3 days was MAPS reviewed?: Prescribed <3 Days Referrals: Louisa Varela MD [REFERRING] - 1-2 days Tesha Hill MD [STAFF PHYSICIAN] - 1-2 days José Wheat MD [REFERRING] - 1-2 days Denise Arzola MD [STAFF PHYSICIAN] - 1-2 days Time of Disposition: 11:13
[2021-09-19 08:54] LABS: Basophils % (A) 1 %; Eosinophils # (A) 0.1 k/uL (0-0.7); Eosinophils % (A) 2 %; HCT 41.1 % (34.0-46.0); HGB 13.9 gm/dL (11.4-16.0); Lymphocytes # (A) 1.6 k/uL (1.0-4.8); Lymphocytes % (A) 33 %; MCH 29.5 pg (25.0-35.0); MCHC 33.8 g/dL (31.0-37.0); MCV 87.2 fL (80.0-100.0); Monocytes # (A) 0.2 k/uL (0-1.0); Monocytes % (A) 4 %; Neutrophils # (A) 2.9 k/uL (1.3-7.7); Neutrophils % (A) 60 %; Platelet Count 150 k/uL (150-450); RBC 4.71 m/uL (3.80-5.40); RDW 12.4 % (11.5-15.5); WBC 4.8 k/uL (3.8-10.6)
[2021-09-19 08:57] LABS: ALT 13 U/L (4-34); AST 22 U/L (14-36); African American GFR (CKD) >90 (>60 ml/min/1.73 sqM); Albumin 4.7 g/dL (3.5-5.0); Alkaline Phosphatase 68 U/L (38-126); Anion Gap 12 mmol/L; Blood Urea Nitrogen 14 mg/dL (7-17); Calcium 9.2 mg/dL (8.4-10.2); Carbon Dioxide 22 mmol/L (22-30); Chloride 106 mmol/L (98-107); Glucose 112 mg/dL (74-99); Lipase 71 U/L (23-300); Non-African American GFR(CKD) >90 (>60 ml/min/1.73 sqM); Potassium 3.8 mmol/L (3.5-5.1); Sodium 140 mmol/L (137-145); Total Bilirubin 0.7 mg/dL (0.2-1.3); Total Protein 7.3 g/dL (6.3-8.2)
[2021-09-19 09:07] LABS: Appearance,Urine Cloudy (Clear); Bilirubin,Urine Negative (Negative); Blood,Urine Negative (Negative); Color,Urine Yellow; Glucose,Urine (UA) Negative (Negative); Hyaline Casts,Urine 1 /lpf (0-2); Ketones,Urine 1+ (Negative); Leukocyte Esterase,Urine Moderate (Negative); Mucus,Urine Few /hpf; Nitrite,Urine Negative (Negative); Protein,Urine Trace (Negative); RBC,Urine 2 /hpf (0-5); Specific Gravity,Urine 1.026 (1.001-1.035); Squamous Epithelial Cell,Urine 9 /hpf (0-4); Urobilinogen,Urine <2.0 mg/dL (<2.0); WBC,Urine 21 /hpf (0-5)
[2021-09-19] MEDS ORDERED: KETOROLAC 15 MG/ML 1 ML VIAL IVP STA (09:08)
--- NOTE | 2021-09-19 10:27 | CT ---
EXAMINATION TYPE: CT abdomen pelvis w con DATE OF EXAM: 09/19/2021 COMPARISON: HISTORY: RLQ pain suspect appendicitis CT DLP: 612.4 mGycm Automated exposure control for dose reduction was used. CONTRAST: CT scan of the abdomen pelvis is performed with IV Contrast, patient injected with 100 mL of Isovue 3 00. FINDINGS- LUNG BASES- No significant abnormality is appreciated. LIVER/GB-there is moderate intrahepatic biliary ductal dilation. No definite gallstone... PANCREAS- No gross abnormality is seen. SPLEEN- No gross abnormality is seen. ADRENALS- No gross abnormality is seen. KIDNEYS/BLADDER-severe right-sided hydronephrosis secondary to obstructing UVJ calculus measuring amber roximately 3 to 4 mm. Additional 4 mm right renal calculus. BOWEL-nonspecific bowel gas pattern. Appendix measures 6 mm at the upper limits of normal with no tristan rounding inflammatory change.. LYMPH NODES- No greater than 1cm abdominal or pelvic lymph nodes areappreciated. OSSEOUS STRUCTURES- No significant abnormality is seen. OTHER- small amount of free fluid in the pelvis. Prominent venous structures may represent pelvic va rices. BE correlated with pelvic ultrasound. IMPRESSION- 1. Severe right hydronephrosis secondary to 3 to 4 mm right UVJ calculus. Additional 4 mm right renal calculus. 2. There is moderate intrahepatic biliary ductal dilation with no diagnostic evidence of gallstone. V isualized portions of the bile duct demonstrate no calcification or dilation. Obstruction would be in the differential diagnosis. Cholangitis should be considered. Correlate clinically. 3. Incidental note made of a small amount of free fluid in the pelvis with prominent pelvic varices. Correlate with pelvic ultrasound as clinically warranted. 4. Appendix measures at the upper limits of normal at 6 mm with no definite surrounding inflammatory change correlate clinically
[2021-09-19 11:42] VITALS: BP 138/60; PULSE 76; RESP 18; TEMP 98.1
== END 2021-09-19 11:42 | disposition home or self-care (01) ==
LOC: EC 08:00
DX: N13.2 Hydronephrosis with renal and ureteral calculous obstruction (principal)
CPT/HCPCS: 36415; 80053; 83690; 85025; 81001; 81025; 87086; 74177; 99284; 96374; 96375; 96361; J2270; J2405; J1885; Q9967

== ENCOUNTER 2021-10-01 14:14 | Observation (INO) | payer OTHER ==
[2021-10-01 15:47] LABS: Appearance,Urine Clear (Clear); Bilirubin,Urine Negative (Negative); Blood,Urine Trace (Negative); Color,Urine Yellow; Glucose,Urine (UA) Negative (Negative); Leukocyte Esterase,Urine Negative (Negative); Mucus,Urine Rare /hpf; Nitrite,Urine Negative (Negative); PH, Urine 5.5 (5.0-8.0); Protein,Urine 1+ (Negative); RBC,Urine 1 /hpf (0-5); Specific Gravity,Urine 1.029 (1.001-1.035); Squamous Epithelial Cell,Urine 1 /hpf (0-4); Urobilinogen,Urine <2.0 mg/dL (<2.0); WBC,Urine <1 /hpf (0-5)
[2021-10-01 16:05] LABS: Ketones,Urine 4+ (Negative)
[2021-10-01] MEDS ORDERED: ONDANSETRON ODT 8 MG TAB.RAPDIS PO STA (16:38)
[2021-10-01] MEDS ORDERED: KETOROLAC 15 MG/ML 1 ML VIAL IVP STA ×2 (16:38→17:44)
[2021-10-01] MEDS ORDERED: SODIUM CHLORIDE 0.9% 1,000 ML IV STA ×2 (16:38→19:26)
[2021-10-01] MEDS ORDERED: ONDANSETRON 4 MG/2 ML VIAL IVP STA (17:05)
[2021-10-01 17:20] LABS: Basophils # (A) 0.1 k/uL (0-0.2); Basophils % (A) 1 %; Eosinophils % (A) 0 %; HCT 41.8 % (34.0-46.0); HGB 14.1 gm/dL (11.4-16.0); Lymphocytes # (A) 1.6 k/uL (1.0-4.8); Lymphocytes % (A) 16 %; MCH 29.4 pg (25.0-35.0); MCHC 33.8 g/dL (31.0-37.0); Mean Platelet Volume 7.6; Monocytes # (A) 0.7 k/uL (0-1.0); Monocytes % (A) 7 %; Neutrophils # (A) 7.5 k/uL (1.3-7.7); Neutrophils % (A) 75 %; Platelet Count 210 k/uL (150-450); RBC 4.81 m/uL (3.80-5.40); RDW 12.2 % (11.5-15.5); WBC 10.1 k/uL (3.8-10.6)
[2021-10-01 17:34] LABS: Albumin 4.9 g/dL (3.5-5.0); Calcium 9.3 mg/dL (8.4-10.2); Potassium 4.8 mmol/L (3.5-5.1); Total Bilirubin 1.2 mg/dL (0.2-1.3); Total Protein 7.7 g/dL (6.3-8.2)
[2021-10-01 17:38] LABS: INR 0.9 (<1.2); Partial Thromboplastin Time 23.7 sec (22.0-30.0)
--- NOTE | 2021-10-01 17:57 | ED ---
Abdominal Pain HPI - General Chief Complaint: Abdominal Pain Stated Complaint: Abd/side pain Time Seen by Provider: 10/01/21 16:32 Source: patient Mode of arrival: ambulatory Limitations: no limitations - History of Present Illness Initial Comments: Patient is a 31-year-old female presenting with chief complaint of right flank pain. Patient states that symptoms have been ongoing for the last 3 days. Patient was evaluated here on 09/19 for the same complaint, was found to have 3-4 mm right-sided calculus with severe right-sided hydronephrosis, was discharged home and instructed to follow up outpatient. She states that pain has since worsened. The pain is severe and does not radiate across the abdomen. Patient was previously having dysuria, however states that symptoms have subsided. She denies any fever or chills. She admits to nausea and vomiting. Denies any chest pain, shortness of breath, headache, vision or hearing changes hematuria, diarrhea, hematochezia, melena, vaginal discharge. - Related Data Home Medications Medication Instructions Recorded Confirmed Multivitamins, Thera [Multivitamin 1 tab PO DAILY 10/15/17 10/01/21 (formulary)] Allergies Allergy/AdvReac Type Severity Reaction Status Date / Time No Known Allergies Allergy Verified 10/01/21 18:39 Review of Systems ROS Statement: Those systems with pertinent positive or pertinent negative responses have been documented in the HPI. ROS Other: All systems not noted in ROS Statement are negative. Past Medical History Past Medical History: No Reported History History of Any Multi-Drug Resistant Organisms: None Reported Past Surgical History: No Surgical Hx Reported Past Anesthesia/Blood Transfusion Reactions: No Reported Reaction Past Psychological History: No Psychological Hx Reported Smoking Status: Never smoker Past Alcohol Use History: Occasional Past Drug Use History: None Reported - Past Family History Mother Family Medical History: No Reported History Father Family Medical History: Hypertension General Exam Limitations: no limitations General appearance: alert, in no apparent distress Head exam: Present: atraumatic, normocephalic, normal inspection Eye exam: Present: normal appearance, EOMI. Absent: scleral icterus, periorbital swelling Neck exam: Present: normal inspection Respiratory exam: Present: normal lung sounds bilaterally. Absent: respiratory distress, wheezes, rales, rhonchi, stridor Cardiovascular Exam: Present: regular rate, normal rhythm, normal heart sounds. Absent: systolic murmur, diastolic murmur, rubs, gallop, clicks GI/Abdominal exam: Present: soft, tenderness (Right-sided). Absent: distended, guarding, rebound, rigid Back exam: Present: CVA tenderness (R). Absent: CVA tenderness (L) Neurological exam: Present: alert, oriented X3, CN II-XII intact Psychiatric exam: Present: normal affect, normal mood Skin exam: Present: warm, dry, intact, normal color. Absent: rash Course Vital Signs 10/01/21 14:53 Temperature 97.9 F Pulse Rate 114 H Respiratory 18 Rate O2 Sat by Pulse 98 Oximetry Medical Decision Making - Medical Decision Making Patient is a 31-year-old female presenting with chief complaint of right-sided abdominal pain. Symptoms have been ongoing since 09/19, however the last 3 days symptoms have worsened. She is experiencing nausea and vomiting. On examination she has right-sided abdominal tenderness to palpation, abdomen is soft, nondistended, no guarding or rebound. No leukocytosis. BUN 19 creatinine 1.11 GFR 68, this has worsened since studies on 09/19. Urine shows 4+ ketones, likely due to dehydration. Metabolic acidosis carbon dioxide 15 with anion gap of 21, this may be due to severity dehydration or decreased kidney function. CT shows [id number] right-sided hydronephrosis secondary to obstructing 6 mm calculus at the ureterovesicular junction. There is concern for appendicitis, as appendix has dilated from 6 mm to 8 mm since 09/19, and there is some mild fat stranding. I spoke with Dr. Ramirez who agreed to admit the patient. I spoke with surgery and nephrology. Patient started on Zosyn per the request of surgery. I discussed these findings and the plan with the patient, she conveyed verbal understanding and agreed to the plan. I discussed this case with my attending Dr. Paulson. - Lab Data Result diagrams: 10/01/21 17:05 10/01/21 17:05 Lab Results 10/01/21 10/01/21 10/01/21 Range/Units 15:11 17:05 17:05 WBC 10.1 (3.8-10.6) k/uL RBC 4.81 (3.80-5.40) m/uL Hgb 14.1 (11.4-16.0) gm/dL Hct 41.8 (34.0-46.0) % MCV 87.0 (80.0-100.0) fL MCH 29.4 (25.0-35.0) pg MCHC 33.8 (31.0-37.0) g/dL RDW 12.2 (11.5-15.5) % Plt Count 210 (150-450) k/uL MPV 7.6 Neutrophils % 75 % Lymphocytes % 16 % Monocytes % 7 % Eosinophils % 0 % Basophils % 1 % Neutrophils # 7.5 (1.3-7.7) k/uL Lymphocytes # 1.6 (1.0-4.8) k/uL Monocytes # 0.7 (0-1.0) k/uL Eosinophils # 0.0 (0-0.7) k/uL Basophils # 0.1 (0-0.2) k/uL PT 10.0 (9.0-12.0) sec INR 0.9 (<1.2) APTT 23.7 (22.0-30.0) sec Sodium (137-145) mmol/L Potassium (3.5-5.1) mmol/L Chloride (98-107) mmol/L Carbon Dioxide (22-30) mmol/L Anion Gap mmol/L BUN (7-17) mg/dL Creatinine (0.52-1.04) mg/dL Est GFR (CKD-EPI)AfAm (>60 ml/min/1.73 sqM) Est GFR (CKD-EPI)NonAf (>60 ml/min/1.73 sqM) Glucose (74-99) mg/dL Plasma Lactic Acid Raj (0.7-2.0) mmol/L Calcium (8.4-10.2) mg/dL Total Bilirubin (0.2-1.3) mg/dL AST (14-36) U/L ALT (4-34) U/L Alkaline Phosphatase (38-126) U/L Total Protein (6.3-8.2) g/dL Albumin (3.5-5.0) g/dL Amylase (30-110) U/L Lipase (23-300) U/L Urine Color Yellow Urine Appearance Clear (Clear) Urine pH 5.5 (5.0-8.0) Ur Specific [place] 1.029 (1.001-1.035) Urine Protein 1+ H (Negative) Urine Glucose (UA) Negative (Negative) Urine Ketones 4+ H (Negative) Urine Blood Trace H (Negative) Urine Nitrite Negative (Negative) Urine Bilirubin Negative (Negative) Urine Urobilinogen <2.0 (<2.0) mg/dL Ur Leukocyte Esterase Negative (Negative) Urine RBC 1 (0-5) /hpf Urine WBC <1 (0-5) /hpf Ur Squamous Epith Cells 1 (0-4) /hpf Urine Mucus Rare H (None) /hpf 10/01/21 10/01/21 Range/Units 17:05 17:05 WBC (3.8-10.6) k/uL RBC (3.80-5.40) m/uL Hgb (11.4-16.0) gm/dL Hct (34.0-46.0) % MCV (80.0-100.0) fL MCH (25.0-35.0) pg MCHC (31.0-37.0) g/dL RDW (11.5-15.5) % Plt Count (150-450) k/uL MPV Neutrophils % % Lymphocytes % % Monocytes % % Eosinophils % % Basophils % % Neutrophils # (1.3-7.7) k/uL Lymphocytes # (1.0-4.8) k/uL Monocytes # (0-1.0) k/uL Eosinophils # (0-0.7) k/uL Basophils # (0-0.2) k/uL PT (9.0-12.0) sec INR (<1.2) APTT (22.0-30.0) sec Sodium 137 (137-145) mmol/L Potassium 4.8 (3.5-5.1) mmol/L Chloride 101 (98-107) mmol/L Carbon Dioxide 15 L (22-30) mmol/L Anion Gap 21 mmol/L BUN 19 H (7-17) mg/dL Creatinine 1.11 H (0.52-1.04) mg/dL Est GFR (CKD-EPI)AfAm 78 (>60 ml/min/1.73 sqM) Est GFR (CKD-EPI)NonAf 68 (>60 ml/min/1.73 sqM) Glucose 74 (74-99) mg/dL Plasma Lactic Acid Raj 1.2 (0.7-2.0) mmol/L Calcium 9.3 (8.4-10.2) mg/dL Total Bilirubin 1.2 (0.2-1.3) mg/dL AST 19 (14-36) U/L ALT 10 (4-34) U/L Alkaline Phosphatase 89 (38-126) U/L Total Protein 7.7 (6.3-8.2) g/dL Albumin 4.9 (3.5-5.0) g/dL Amylase 58 (30-110) U/L Lipase 80 (23-300) U/L Urine Color Urine Appearance (Clear) Urine pH (5.0-8.0) Ur Specific [place] (1.001-1.035) Urine Protein (Negative) Urine Glucose (UA) (Negative) Urine Ketones (Negative) Urine Blood (Negative) Urine Nitrite (Negative) Urine Bilirubin (Negative) Urine Urobilinogen (<2.0) mg/dL Ur Leukocyte Esterase (Negative) Urine RBC (0-5) /hpf Urine WBC (0-5) /hpf Ur Squamous Epith Cells (0-4) /hpf Urine Mucus (None) /hpf Disposition Clinical Impression: Nephrolithiasis, Hydronephrosis Disposition: ADMITTED IP TO THIS [facility] Condition: Fair Referrals: None,Stated [Primary Care Provider] - 1-2 days Time of Disposition: 19:11 Decision to Admit Reason: Admit from EC Decision Date: 10/01/21 Decision Time: 19:11
--- NOTE | 2021-10-01 18:28 | CT ---
EXAMINATION TYPE: CT abdomen pelvis wo con CT DLP: 382.9 mGycm, Automated exposure control for dose reduction was used. DATE OF EXAM: 10/01/2021 5:42 PM COMPARISON: CT abdomen pelvis most recent from 09/19. Contrast filled /2021 CLINICAL INDICATION:Female, 31 years old with history of Right flank pain, kidney stone suspected; RT flank pain. Hx renal stones TECHNIQUE: Axial CT of the abdomen and pelvis. Sagittal and coronal reformats were created on a [employer] workstation. Contrast used none Oral contrast used: without Oral Contrast FINDINGS: LOWER CHEST: Unremarkable ABDOMEN LIVER: Unremarkable GALLBLADDER AND BILE DUCTS: Unremarkable. PANCREAS: Unremarkable. SPLEEN: Unremarkable. ADRENAL GLANDS: Unremarkable. KIDNEYS AND URETERS: Similar right moderate to severe hydronephrosis secondary to obstructing 6 mm ca lculus at the ureterovesicular junction. Additional calculus seen within the renal calyx on the right is no longer visualized from 09/19/2021. PELVIS BLADDER: Unremarkable REPRODUCTIVE: Unremarkable. ABDOMEN & PELVIS STOMACH AND BOWEL: No evidence of bowel obstruction. Appendix appears more dilated on today's exam wi th small amount of fat stranding changes now measuring 8 mm previously 6 mm. PERITONEUM: No evidence of pneumoperitoneum trace free fluid within the pelvis. VASCULATURE: No evidence of aortic aneurysm. MUSCULOSKELETAL: No acute osseous abnormalities LYMPH NODES: No gross evidence for lymphadenopathy. SOFT TISSUE/ABDOMINAL WALL: Unremarkable IMPRESSION: 1. Moderate to severe right hydronephrosis secondary obstructing 6 calculus at the ureterovesicular junction. 2. Interval mild dilation of the appendix now measuring up to 8 mm correlate for signs and symptoms o f appendicitis.
[2021-10-01] MEDS ORDERED: NALOXONE 0.4 MG/ML 1 ML VIAL IV PRN (19:01)
[2021-10-01] MEDS ORDERED: ACETAMINOPHEN TAB 325 MG TAB PO PRN (19:01)
[2021-10-01] MEDS ORDERED: KETOROLAC 15 MG/ML 1 ML VIAL IVP PRN (19:01)
[2021-10-01] MEDS ORDERED: ONDANSETRON 4 MG/2 ML VIAL IVP PRN (19:01)
[2021-10-01] MEDS ORDERED: SODIUM CHLORIDE 0.9% 1,000 ML IV ONE (20:19)
[2021-10-01] MEDS ORDERED: PIPERACILLIN-TAZOBACTAM 3.375 GM in SODIUM CHLORIDE 0.9% 100 ML IVPB SCH (21:00)
[2021-10-01] MEDS ORDERED: MORPHINE SULFATE 2 MG/ML SYRINGE IVP PRN (21:16)
--- NOTE | 2021-10-01 21:47 | P.HPIM ---
History of Present Illness H&P Date: 10/01/21 Chief Complaint: abd pain 31 year old female with no significant past medical history , recently gave to a healthy baby 5 months ago patient comes in due to worsening right flank pain, she was here on 09/19 for similar problem and was diagnosed with right renal calculi. today she is coming back with worsening right flank pain , the pain is not radiating to the groin anymore, denies any urinary urgencies which has improved compared to a week ago . she denies any fever, chills, still having episodes of nausea and vomiting non bloody , has decrease PO intake . chills but no fevers. pain in right flank is colicky 10/10 in severity , improves with pain meds. de nies any hematuria , diarrhea or bloody bowel movement , she reports urinary symptoms have all resolved now denies any trouble breathing or chest pain CT today , showed moderate right hydro with 6 mm stone at the uterovesicular junction (small stones not seen this time compared to CT 09/19) , and possible appendicitis with dilation of 8mm ( increase from [address] 1 week ago ) blood work no leukocytosis , no lactic acidosis , UA showed ketones anion gap metabolic acidosis Review of Systems Pertinent positives as noted in HPI. All other systems were reviewed and are negative Past Medical History Past Medical History: No Reported History History of Any Multi-Drug Resistant Organisms: None Reported Past Surgical History: No Surgical Hx Reported Past Anesthesia/Blood Transfusion Reactions: No Reported Reaction Past Psychological History: No Psychological Hx Reported Smoking Status: Never smoker Past Alcohol Use History: Occasional Past Drug Use History: None Reported - Past Family History Mother Family Medical History: No Reported History Father Family Medical History: Hypertension Medications and Allergies Home Medications Medication Instructions Recorded Confirmed Type Multivitamins, Thera [Multivitamin 1 tab PO DAILY 10/15/17 10/01/21 History (formulary)] Allergies Allergy/AdvReac Type Severity Reaction Status Date / Time No Known Allergies Allergy Verified 10/01/21 18:39 Physical Exam Vitals: Vital Signs Temp Pulse Resp Pulse Ox 10/01/21 14:53 97.9 F 114 H 18 98 Intake and Output 10/01/21 10/01/21 10/01/21 06:59 14:59 22:59 Other: Weight 58.967 kg Constitutional: No acute distress, conversant, pleasant Eyes: Anicteric sclerae, moist conjunctiva, Pupils equal round reactive to light ENMT: NC/AT Oropharynx clear, no erythema, or exudates Neck: Supple, no masses, or JVD No carotid bruits No thyromegaly Lungs: Clear to auscultation Clear to percussion Normal respiratory effort, no accessory muscle use Cardiovascular: Heart regular in rate and rhythm, No murmurs, gallops, or rubs No peripheral edema Abdominal: Soft right CVA tenderness, tenderness to deep palpation over the right flank, no tenderness over lower abdomen, no guarding, rebound or rigidity Abdomen moving with respiration Normoactive bowel sounds No hepatomegaly, No splenomegaly No palpable mass No abdominal wall hernia noted Skin: Normal temperature, tone, texture, turgor No induration No subcutaneous nodules No rash, lesions No ulcers Extremities: No digital cyanosis No clubbing Pedal pulses intact and symmetrical Radial pulses intact and symmetrical No calf tenderness Psychiatric: Alert and oriented to person, place and time Appropriate affect fair judgement Neuro Muscles Strength 5/5 in all 4 extremities Sensation to light touch grossly present throughout Cranial nerves II-XII grossly intact No focal sensory deficits Lymphatics: no palpable cervical or supraclavicular , or inguinal lymph nodes Results CBC & Chem 7: 10/01/21 17:05 10/01/21 17:05 Labs: Abnormal Lab Results - Last 24 Hours (Table) 10/01/21 10/01/21 Range/Units 15:11 17:05 Carbon Dioxide 15 L (22-30) mmol/L BUN 19 H (7-17) mg/dL Creatinine 1.11 H (0.52-1.04) mg/dL Urine Protein 1+ H (Negative) Urine Ketones 4+ H (Negative) Urine Blood Trace H (Negative) Urine Mucus Rare H (None) /hpf Assessment and Plan Assessment: right hydronephrosis secondary to obstructing right ureteral calculi aggressive IVF hydration flomax symptomatic control of nausea and vomiting with zofran straining urine urology consult pain control with NSAIDs and opiates appendicitis general surgery consult no leukocytosis NPO after midnight initiated on zosyn follow up cultures tylenol for fever PRN monitor vital signs anion gap metabolic acidosis lactic acid within normal limits IVF hydration with normal saline DVT PPX heparin sc tid full code
[2021-10-01] MEDS: TAMSULOSIN 0.4 MG CAP.ER.24H PO SCH (23:24)
[2021-10-02] MEDS: PIPERACILLIN-TAZOBACTAM 3.375 GM in SODIUM CHLORIDE 0.9% 100 ML IVPB SCH ×2 (00:20→08:22)
[2021-10-02] MEDS: TAMSULOSIN 0.4 MG CAP.ER.24H PO SCH (08:22)
[2021-10-02 09:16] LABS: Basophils # (A) 0.03 X 10*3/uL (0.00-0.10); Basophils % (A) 0.4 %; Eosinophils # (A) 0.11 X 10*3/uL (0.04-0.35); Eosinophils % (A) 1.5 %; HCT 33.4 % (37.2-46.3); HGB 11.5 g/dL (12.0-15.0); Immature Grans, Automated 0.3 %; Lymphocytes % (A) 19.5 %; MCH 29.9 pg (27.0-32.0); MCHC 34.4 g/dL (32.0-37.0); MCV 86.8 fL (80.0-97.0); Mean Platelet Volume 10.8 fL (9.5-12.2); Monocytes # (A) 0.77 X 10*3/uL (0.20-1.00); Monocytes % (A) 10.7 %; NRBC Per 100 WBC 0 /100 WBCS (0.0-0.0); Neutrophils # (A) 4.85 X 10*3/uL (1.80-7.70); Neutrophils % (A) 67.6 %; Platelet Count 183 X 10*3/uL (140-440); RBC 3.85 X 10*6/uL (4.10-5.20); RDW 12.2 % (11.5-14.5); WBC 7.18 X 10*3/uL (4.50-10.00)
[2021-10-02 09:35] LABS: African American GFR (CKD) 88.2 (60.0-200.0); Albumin 4.1 g/dL (3.8-4.9); Albumin/Globulin Ratio 2.56 (1.60-3.17); Anion Gap 17.9 mmol/L (10.00-18.00); Calcium 8.5 mg/dL (8.7-10.3); Carbon Dioxide 13.1 mmol/L (20.0-27.5); Globulin 1.6 g/dL (1.6-3.3); Non-African American GFR(CKD) 76.1 (60.0-200.0); Potassium 4.1 mmol/L (3.5-5.5); Total Bilirubin 0.8 mg/dL (0.30-1.20); Total Protein 5.7 g/dL (6.2-8.2)
--- NOTE | 2021-10-02 13:13 | P.GSCN ---
History of Present Illness Consult date: 10/02/21 Reason for Consult: Right-sided ureteral stone History of present illness: This is a 31-year-old female with a history of a 6 mm right-sided stone at the UVJ causing right flank pain, pain associated with nausea. Of note she was seen in the ER on September 19 for flank pain, underwent a CT at that time that showed evidence of a 4 mm right-sided UVJ, and an additional 5 mm right-sided lower pole stone. She subsequently passed the stone at the UVJ and the current stone is the stone that was in the lower pole at that time. Of note there was also finding of thickening of the appendix on CT. No previous history of stones prior to these episodes. Denies any fevers, chills. Denies any dysuria or gross hematuria or urinary symptoms. She does have family history of kidney stones. This morning on evaluation she indicated she's having minimal flank pain. Indicated there is resolutions of her nausea Review of Systems - Constitutional Denies chills, Denies fever - EENT Ears, nose, mouth and throat: Denies dysphagia - Cardiovascular Denies chest pain, Denies shortness of breath - Gastrointestinal Reports as per HPI - Genitourinary Genitourinary: Reports flank pain, Denies dysuria - Integumentary Denies rash, Denies unusual bruising - Neurological Denies headaches, Denies syncope Past Medical History Past Medical History: No Reported History History of Any Multi-Drug Resistant Organisms: None Reported Past Surgical History: No Surgical Hx Reported Past Anesthesia/Blood Transfusion Reactions: No Reported Reaction Past Psychological History: No Psychological Hx Reported Smoking Status: Never smoker Past Alcohol Use History: Occasional Past Drug Use History: None Reported - Past Family History Mother Family Medical History: No Reported History Father Family Medical History: Hypertension Medications and Allergies Home Medications Medication Instructions Recorded Confirmed Type Multivitamins, Thera [Multivitamin 1 tab PO DAILY 10/15/17 10/01/21 History (formulary)] Allergies Allergy/AdvReac Type Severity Reaction Status Date / Time No Known Allergies Allergy Verified 10/01/21 18:39 Surgical - Exam Vital Signs Temp Pulse Resp Pulse Ox 97.9 F 114 H 18 98 10/01/21 14:53 10/01/21 14:53 10/01/21 14:53 10/01/21 14:53 - General no distress, no pain - Eyes normal ocular movement, no pale - ENT normal nares, normal mucosa - Respiratory normal expansion, normal respiratory effort - Abdomen Abdomen: soft, non tender - Psychiatric oriented to time, oriented to person, oriented to place Results - Labs 10/02/21 04:02 10/02/21 04:02 Abnormal Lab Results - Last 24 Hours (Table) 10/01/21 10/01/21 10/02/21 Range/Units 15:11 17:05 04:02 RBC 3.85 L (4.10-5.20) X 10*6/uL Hgb 11.5 L (12.0-15.0) g/dL Hct 33.4 L (37.2-46.3) % Carbon Dioxide 15 L (22-30) mmol/L BUN 19 H (7-17) mg/dL Creatinine 1.11 H (0.52-1.04) mg/dL BUN/Creatinine Ratio (12.00-20.00) Ratio Glucose (70-110) mg/dL Calcium (8.7-10.3) mg/dL AST (13-35) U/L ALT (8-44) U/L Total Protein (6.2-8.2) g/dL Urine Protein 1+ H (Negative) Urine Ketones 4+ H (Negative) Urine Blood Trace H (Negative) Urine Mucus Rare H (None) /hpf 10/02/21 Range/Units 04:02 RBC (4.10-5.20) X 10*6/uL Hgb (12.0-15.0) g/dL Hct (37.2-46.3) % Carbon Dioxide 13.1 L (22-30) mmol/L BUN (7-17) mg/dL Creatinine (0.52-1.04) mg/dL BUN/Creatinine Ratio 21.00 H (12.00-20.00) Ratio Glucose 59 L (70-110) mg/dL Calcium 8.5 L (8.7-10.3) mg/dL AST 12 L (13-35) U/L ALT 7 L (8-44) U/L Total Protein 5.7 L (6.2-8.2) g/dL Urine Protein (Negative) Urine Ketones (Negative) Urine Blood (Negative) Urine Mucus (None) /hpf Diabetes panel 10/01/21 10/02/21 Range/Units 17:05 04:02 Sodium 137 137 (137-145) mmol/L Potassium 4.8 4.1 (3.5-5.1) mmol/L Chloride 101 106 (98-107) mmol/L Carbon Dioxide 15 L 13.1 L (22-30) mmol/L BUN 19 H 21.0 (7-17) mg/dL Creatinine 1.11 H 1.0 (0.52-1.04) mg/dL Glucose 74 59 L (74-99) mg/dL Calcium 9.3 8.5 L (8.4-10.2) mg/dL AST 19 12 L (14-36) U/L ALT 10 7 L (4-34) U/L Alkaline Phosphatase 89 65 (38-126) U/L Total Protein 7.7 5.7 L (6.3-8.2) g/dL Albumin 4.9 4.1 (3.5-5.0) g/dL Calcium panel 10/01/21 10/02/21 Range/Units 17:05 04:02 Calcium 9.3 8.5 L (8.4-10.2) mg/dL Albumin 4.9 4.1 (3.5-5.0) g/dL Pituitary panel 10/01/21 10/02/21 Range/Units 17:05 04:02 Sodium 137 137 (137-145) mmol/L Potassium 4.8 4.1 (3.5-5.1) mmol/L Chloride 101 106 (98-107) mmol/L Carbon Dioxide 15 L 13.1 L (22-30) mmol/L BUN 19 H 21.0 (7-17) mg/dL Creatinine 1.11 H 1.0 (0.52-1.04) mg/dL Glucose 74 59 L (74-99) mg/dL Calcium 9.3 8.5 L (8.4-10.2) mg/dL Adrenal panel 10/01/21 10/02/21 Range/Units 17:05 04:02 Sodium 137 137 (137-145) mmol/L Potassium 4.8 4.1 (3.5-5.1) mmol/L Chloride 101 106 (98-107) mmol/L Carbon Dioxide 15 L 13.1 L (22-30) mmol/L BUN 19 H 21.0 (7-17) mg/dL Creatinine 1.11 H 1.0 (0.52-1.04) mg/dL Glucose 74 59 L (74-99) mg/dL Calcium 9.3 8.5 L (8.4-10.2) mg/dL Total Bilirubin 1.2 0.80 (0.2-1.3) mg/dL AST 19 12 L (14-36) U/L ALT 10 7 L (4-34) U/L Alkaline Phosphatase 89 65 (38-126) U/L Total Protein 7.7 5.7 L (6.3-8.2) g/dL Albumin 4.9 4.1 (3.5-5.0) g/dL Assessment and Plan Assessment: 31-year-old female with history of a 6 mm right-sided stone in the UVJ, minimal symptomatically's morning. Of note she recently passed a 4 mm stone last month. Discussed with her given the minimal symptoms at this time we'll continue with medical expulsive therapy. Discussed if the pain recurs or she fails to pass a stone within 3-4 week then will proceed with ureteroscopy holmium laser. At this time given her minimal symptoms she is okay for discharge from urology standpoint. But if pain recurs this afternoon then will keep inpatient and plan on proceeding with right-sided ureteroscopy with holmium laser to address her stone
--- NOTE | 2021-10-02 14:25 | P.GSCN ---
History of Present Illness Consult date: 10/02/21 History of present illness: CHIEF COMPLAINT: Right flank pain HISTORY OF PRESENT ILLNESS: This is a 31-year-old female who presented to hospital with complaint of right flank pain that radiated down into the right groin. Symptoms started 4 days ago. She also was in the ER recently on 728 for kidney stones as well. At that time she did pass a kidney stone. Patient does complain of pressure and hesitancy when urinating. And had been complaining of back pain. She had been having nausea and vomiting with chills. Reports decrease in appetite. She does report flatus. She does have some right lower quadrant discomfort. Computed tomography scan abdomen and pelvis demonstrated moderate to severe right hydronephrosis secondary to obstructing 6 mm calculus at the ureterovesical junction. Also interval mild dilation of the appendix measuring 8 mm. Surgical service consulted in regarding the dilated appendix. Patient was seen by urology regarding the kidney stone. Patient seems and with Dr. byrd PAST MEDICAL HISTORY: See list. PAST SURGICAL HISTORY: See list. MEDICATIONS: See list. ALLERGIES: See list. SOCIAL HISTORY: No illicit drug use. REVIEW OF SYSTEMS: CONSTITUTIONAL: Denies fever or chills. HEENT: Denies blurred vision, vision changes, or eye pain. Denies hemoptysis CARDIOVASCULAR: Denies chest pain or pressure. RESPIRATORY: No shortness of breath. GASTROINTESTINAL: See HPI for pertinent findings HEMATOLOGIC: Denies bleeding disorders. GENITOURINARY: Denies any blood in urine or increased urinary frequency. SKIN: Denies pruitis. Denies rash. PHYSICAL EXAM: VITAL SIGNS: Reviewed GENERAL: Well-developed in no acute distress. HEENT: No sclera icterus. Extraocular movements grossly intact. Moist buccal mucosa. Head is atraumatic, normocephalic. No nasal drainage. ABDOMEN: Soft. Nondistended. Patient does have tenderness in the right CVA and right lower quadrant area NEUROLOGIC: Alert and oriented. Cranial nerves II through XII grossly intact. LABORATORY DATA: WBC 7.1H Hgb 11.5 platelets 183 Sodium 137 potassium is 4.1 creatinine 1.0 Urinalysis trace blood IMAGING: CAT scan as stated above ASSESSMENT: 1. Minimally enlarged appendix 2. Right flank pain and Right lower quadrant abdominal pain likely secondary to patient's kidney stone 3. 6 mm right sided kidney stone at the ureterovesical junction with hydronephrosis PLAN: -No surgical intervention planned -Recommend to continue antibiotics -Start patient on regular diet -Patient can be discharge from surgical standpoint when medically cleared -Recommend that patient is discharged with antibiotics -Urological management of a kidney stone and hydronephrosis Thank you for this consultation Physician Product Safety Professional note has been reviewed by physician. Signing provider agrees with the documented findings, assessment, and plan of care. Past Medical History Past Medical History: No Reported History History of Any Multi-Drug Resistant Organisms: None Reported Past Surgical History: No Surgical Hx Reported Past Anesthesia/Blood Transfusion Reactions: No Reported Reaction Past Psychological History: No Psychological Hx Reported Smoking Status: Never smoker Past Alcohol Use History: Occasional Past Drug Use History: None Reported - Past Family History Mother Family Medical History: No Reported History Father Family Medical History: Hypertension Medications and Allergies Home Medications Medication Instructions Recorded Confirmed Type Multivitamins, Thera [Multivitamin 1 tab PO DAILY 10/15/17 10/01/21 History (formulary)] Allergies Allergy/AdvReac Type Severity Reaction Status Date / Time No Known Allergies Allergy Verified 10/01/21 18:39 Surgical - Exam Vital Signs Temp Pulse Resp Pulse Ox 97.9 F 114 H 18 98 10/01/21 14:53 10/01/21 14:53 10/01/21 14:53 10/01/21 14:53 Results - Labs 10/02/21 04:02 10/02/21 04:02 Abnormal Lab Results - Last 24 Hours (Table) 10/01/21 10/01/21 10/02/21 Range/Units 15:11 17:05 04:02 RBC 3.85 L (4.10-5.20) X 10*6/uL Hgb 11.5 L (12.0-15.0) g/dL Hct 33.4 L (37.2-46.3) % Carbon Dioxide 15 L (22-30) mmol/L BUN 19 H (7-17) mg/dL Creatinine 1.11 H (0.52-1.04) mg/dL BUN/Creatinine Ratio (12.00-20.00) Ratio Glucose (70-110) mg/dL Calcium (8.7-10.3) mg/dL AST (13-35) U/L ALT (8-44) U/L Total Protein (6.2-8.2) g/dL Urine Protein 1+ H (Negative) Urine Ketones 4+ H (Negative) Urine Blood Trace H (Negative) Urine Mucus Rare H (None) /hpf 10/02/21 Range/Units 04:02 RBC (4.10-5.20) X 10*6/uL Hgb (12.0-15.0) g/dL Hct (37.2-46.3) % Carbon Dioxide 13.1 L (22-30) mmol/L BUN (7-17) mg/dL Creatinine (0.52-1.04) mg/dL BUN/Creatinine Ratio 21.00 H (12.00-20.00) Ratio Glucose 59 L (70-110) mg/dL Calcium 8.5 L (8.7-10.3) mg/dL AST 12 L (13-35) U/L ALT 7 L (8-44) U/L Total Protein 5.7 L (6.2-8.2) g/dL Urine Protein (Negative) Urine Ketones (Negative) Urine Blood (Negative) Urine Mucus (None) /hpf Diabetes panel 10/01/21 10/02/21 Range/Units 17:05 04:02 Sodium 137 137 (137-145) mmol/L Potassium 4.8 4.1 (3.5-5.1) mmol/L Chloride 101 106 (98-107) mmol/L Carbon Dioxide 15 L 13.1 L (22-30) mmol/L BUN 19 H 21.0 (7-17) mg/dL Creatinine 1.11 H 1.0 (0.52-1.04) mg/dL Glucose 74 59 L (74-99) mg/dL Calcium 9.3 8.5 L (8.4-10.2) mg/dL AST 19 12 L (14-36) U/L ALT 10 7 L (4-34) U/L Alkaline Phosphatase 89 65 (38-126) U/L Total Protein 7.7 5.7 L (6.3-8.2) g/dL Albumin 4.9 4.1 (3.5-5.0) g/dL Calcium panel 10/01/21 10/02/21 Range/Units 17:05 04:02 Calcium 9.3 8.5 L (8.4-10.2) mg/dL Albumin 4.9 4.1 (3.5-5.0) g/dL Pituitary panel 10/01/21 10/02/21 Range/Units 17:05 04:02 Sodium 137 137 (137-145) mmol/L Potassium 4.8 4.1 (3.5-5.1) mmol/L Chloride 101 106 (98-107) mmol/L Carbon Dioxide 15 L 13.1 L (22-30) mmol/L BUN 19 H 21.0 (7-17) mg/dL Creatinine 1.11 H 1.0 (0.52-1.04) mg/dL Glucose 74 59 L (74-99) mg/dL Calcium 9.3 8.5 L (8.4-10.2) mg/dL Adrenal panel 10/01/21 10/02/21 Range/Units 17:05 04:02 Sodium 137 137 (137-145) mmol/L Potassium 4.8 4.1 (3.5-5.1) mmol/L Chloride 101 106 (98-107) mmol/L Carbon Dioxide 15 L 13.1 L (22-30) mmol/L BUN 19 H 21.0 (7-17) mg/dL Creatinine 1.11 H 1.0 (0.52-1.04) mg/dL Glucose 74 59 L (74-99) mg/dL Calcium 9.3 8.5 L (8.4-10.2) mg/dL Total Bilirubin 1.2 0.80 (0.2-1.3) mg/dL AST 19 12 L (14-36) U/L ALT 10 7 L (4-34) U/L Alkaline Phosphatase 89 65 (38-126) U/L Total Protein 7.7 5.7 L (6.3-8.2) g/dL Albumin 4.9 4.1 (3.5-5.0) g/dL
[2021-10-02 16:15] VITALS: BP 100/60; PULSE 85; RESP 18; TEMP 96.9
--- NOTE | 2021-10-02 16:37 | P.DS ---
Providers Date of admission: 10/01/21 20:21 Expected date of discharge: 10/02/21 Attending physician: Fabiola Ramirez DO Consults: 10/01/21 19:04 Consult Physician Urgent Consulting Provider: Gilson Galeas Consult Reason/Comments: potential appendicitis Do you want consulting provider notified?: Already Contacted 10/01/21 19:05 Consult Physician Urgent Consulting Provider: Mj Muse Consult Reason/Comments: obstructing 6mm stone with hydronephrosis Do you want consulting provider notified?: Yes Primary care physician: Stated None Hospital Course: Discharge Diagnosis: Right sided UVJ stone right sided hydronephrosis enlarged appendix without clinical signs of appendicitis Hospital Course: Patient is a 31 yo CF with recent renal stone who presented to the emergency department with right flank pain. She underwent an extensive evaluation in the emergency department. On arrival she was tachycardiac with a HR of 114. Her initial laboratory analysis showed mild creatinine elevation at 1.11, not consistent with ROLAN, and 4+ ketonuria. CT abd and pelvis demonstrated moderate to severe right sided hydronephrosis, obstructing 6 mm calculus at the IVJ, mild dilation of the appendix. She was admitted and was started on IVF and flomax. She was seen by urology and surgery. She had improvement in her pain and was eating and nausea had abated. She was determined stable for discharge with close outpatient follow-up. She will see Dr. Muse on 10/09/21. She will continued on flomax, and per general surgery recommendations she was discharged with a short course of antibiotics. She was told that she should follow with a primary care provider. Patient seen and examined at bedside.Felling better than yesterday, pain is controlled at this time, no increaed pain with urination. Check in with nursing in the afternoon and she is feeling well and is amenable to outpatient follow-up. Vital signs reviewed and stable. General: nontoxic, no distress, appears at stated age Derm: warm, dry Head: atraumatic, normocephalic, symmetric Eyes: EOMI, no lid lag, anicteric sclera Mouth: no lip lesion, mucus membranes moist Cardiovascular: S1S2 reg, no murmur, positive posterior tibial pulse bilateral, Lungs: CTA bilateral, no rhonchi, no rales , no accessory muscle use Abdominal: soft, +tender to palpation right groin , no guarding, no appreciable organomegaly Ext: no gross muscle atrophy, no edema, no contractures Neuro: CN II-XI grossly intact, no focal neuro deficits Psych: Alert, oriented, appropriate affect A total of 25 minutes of time were spent preparing this complex discharge summary. Patient was discharged on 10/02/21. Patient Condition at Discharge: Stable Plan - Discharge Summary Discharge Rx Participant: No New Discharge Prescriptions: New Ibuprofen [Motrin] 600 mg PO Q8HR PRN #30 tab PRN Reason: Pain Amoxic-Pot Clav 875-125Mg [Augmentin 875-125] 1 tab PO BID 5 Days #10 tab Tamsulosin [Flomax] 0.4 mg PO PC-BRKFST #30 cap Continue Multivitamins, Thera [Multivitamin (formulary)] 1 tab PO DAILY Discharge Medication List Multivitamins, Thera [Multivitamin (formulary)] 1 tab PO DAILY 10/15/17 [History] Amoxic-Pot Clav 875-125Mg [Augmentin 875-125] 1 tab PO BID 5 Days #10 tab 10/02/21 [Rx] Ibuprofen [Motrin] 600 mg PO Q8HR PRN #30 tab 10/02/21 [Rx] Tamsulosin [Flomax] 0.4 mg PO PC-BRKFST #30 cap 10/02/21 [Rx] Follow up Appointment(s)/Referral(s): Mj Muse MD [STAFF PHYSICIAN] - 10/09/21 10:20 am Get Perez MD [STAFF PHYSICIAN] - 1 Week (you should have a primary care physician, this is a recommendation for you but please follow-up with the primary care provider of your choice. ) None,Stated [Primary Care Provider] - 1-2 days Gilson Galeas MD [STAFF PHYSICIAN] - 1 Week Activity/Diet/Wound Care/Special Instructions: Activity: as tolerated Diet: regular Special Instructions: Return if fever greater than 100.4, worsening pain, worsening nausea, or decreased urination Discharge Disposition: HOME SELF-CARE
== END 2021-10-02 17:30 | disposition home or self-care (01) ==
LOC: EC 14:14 → 6NMEDSUR 20:21
PROVIDERS: ADMIT Internal Medicine; ATTEND Internal Medicine
DX: N13.2 Hydronephrosis with renal and ureteral calculous obstruction (principal); E87.2 Acidosis; Z82.49 Family history of ischemic heart disease and other diseases of the circulatory system
CPT/HCPCS: 36415; 80053 ×2; 82150; 83605; 83690; 85025 ×2; 85610; 85730; 81001; 74176; G0378 ×2; J2543; J2405 ×2; J1885 ×2; 96365; 96366; 96375; 96376; 99285

== ENCOUNTER → 2021-10-22 | Outpatient (CLI) | payer OTHER ==
--- NOTE | 2021-10-22 14:32 | US ---
EXAMINATION TYPE: US kidneys/renal and bladder DATE OF EXAM: 10/22/2021 COMPARISON: CT abdomen pelvis 10/01/2021. CLINICAL HISTORY: N20.1 CALCULUS OF URETER. Calculus of ureter, Hx of RT kidney stones and hydronephr osis EXAM MEASUREMENTS: Right Kidney: 12.2 x 4.8 x 5.8 cm Left Kidney: 12.3 x 5.2 x 4.3 cm Right Kidney: Mild hydronephrosis and dilatation of ureter seen, no obvious stones Left Kidney: No hydronephrosis or masses seen Bladder: Appears wnl Bilateral Jets seen: Yes IMPRESSION: Mild right hydroureteronephrosis which is decreased from prior CT. Bilateral ureteral jets identifie d.
== END | disposition home or self-care (01) ==
LOC: RADUSWWP 13:31
PROVIDERS: ATTEND Urology
DX: N13.2 Hydronephrosis with renal and ureteral calculous obstruction (principal); Z87.442 Personal history of urinary calculi
CPT/HCPCS: 76770

== ENCOUNTER → 2021-11-25 | Outpatient (CLI) | payer OTHER ==
--- NOTE | 2021-11-25 14:20 | US ---
EXAMINATION TYPE: US kidneys/renal and bladder DATE OF EXAM: 11/25/2021 COMPARISON: CT, US CLINICAL HISTORY: N13.30 UNSPECIFIED HYDRONEPHROSIS. Hydronephrosis on the right. EXAM MEASUREMENTS: Right Kidney: 12.8 x 5.1 x 4.4 cm Left Kidney: 12.9 x 5.1 x 4.9 cm Right Kidney: Appears slightly enlarged. Renal pelvis appears dilated but to a lesser degree than elizabeth or CT. Left Kidney: Appears enlarged. No hydronephrosis or masses seen Bladder: Appears wnl Bilateral Jets seen: Yes IMPRESSION: Persistent dilation of the right renal collecting system which could represent pelviectasis from prio r obstruction on 10/01/2021.
--- NOTE | 2021-11-25 14:41 | XR ---
EXAMINATION TYPE: XR KUB DATE OF EXAM: 11/25/2021 2:10 PM INDICATION: Patient age:Female; 31 years old; Reason for study: N13.30 UNSPECIFIED HYDRONEPHROSIS. COMPARISON: CT abdomen pelvis 10/01/2021 TECHNIQUE: One radiographic view of the abdomen was obtained. FINDINGS: Calcification near the distal right ureterovesicular junction is no longer definitively vis ualized on plain film. The bowel gas pattern is nonspecific without dilated loops of small or large b owel. There is no evidence for organomegaly or pneumoperitoneum. The osseous structures are intact. Fecal material and gas are demonstrated throughout the colon and rectum. IMPRESSION: Right ureterovesicular junction calculus seen on prior CT not definitively visualized.
== END | disposition home or self-care (01) ==
LOC: RADUSWWP 13:33
PROVIDERS: ATTEND Urology
DX: N28.89 Other specified disorders of kidney and ureter (principal)
CPT/HCPCS: 74018; 76770